=== PATIENT | female | born 1955 | race Caucasian/White ===

== ENCOUNTER 2016-06-07 09:16 | Emergency (ER) | payer MEDICARE, OTHER ==
[~2016-06-07] VITALS: Ht 170.2 cm; Wt 89.5 kg
[~2016-06-07 09:16] MED LIST: AMLO5TAB2 PO; ASPI1TAB69 PO; BUTA1CAP PO; GABA300C5 PO; LISI10TA3 PO; LORA-474 PO; METO50TA PO; PANT40TA3 PO; REME30TA PO; SERO200T PO; SERO25TA PO; ZOLO25TA PO
[2016-06-07 09:19] VITALS: BP 132/82; PULSE 80; RESP 16; TEMP 98.2; O2SAT 98
--- NOTE | 2016-06-07 09:43 | PD ---
HPI Chief Complaint: General Weakness Time Seen by Provider: 09:38 Travel History International Travel<30 days: No Contact w/Intl Traveler<30days: No Traveled to known affect area: No History of Present Illness HPI This is a 60-year-old female with history of tobaccoism, who presents with head neck and upper back pain. The patient states that 3 days ago, she tripped and fell while pushing a cart. She states she fell for hitting her head. She denies a loss of consciousness. The patient states that she was seen on Wednesday at [facility] and had a CAT scan that was told negative. She states that she still feels dizzy and lightheaded with some nausea. 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) GERD: No Genitourinary: No Hepatitis: Yes (HEP C TX IN 1988) Hiatal Hernia: No Hypertension: Yes Immune Disorder: No Implanted Vascular Access Dvce: Yes Musculoskeletal: Yes (HX OF SPINAL ABCESS) Neurologic: No Psychiatric: Yes Reproductive: No Respiratory: No Sickle Cell Disease: No Thyroid Disease: No Ulcer: No Menopausal: Yes Tubal Ligation: Yes (1990) Past Surgical History Abdominal Surgery: Yes ( LAP CHOLY AND LIVER BX) Body Medical Devices: HARDWARE IN LUMBAR SPINE Cholecystectomy: Yes Coronary Artery Bypass Graft: No Ear Surgery: No Endocrine Surgery: No Eye Surgery: No Genitourinary Surgery: No Gynecologic Surgery: Yes (TUBALIGATION ) Oral Surgery: No Other Surgery: Yes (spinal cage fusion l4 l5; tubal ligation; liver biopsy) Social History Alcohol Use: No (PT DENIES) Tobacco Use: Yes (1 PPD) Substance Use: No (PT DENIES) Allergies-Medications (Allergen,Severity, Reaction): Coded Allergies: Flexeril (Verified Allergy, Severe, Restlessness, 06/07/16) Reported Meds & Prescriptions Reported Meds & Active Scripts Active Lortab (Hydrocodone-Acetaminophen) 5-325 Mg Tab 1 Tab PO Q6H PRN Lisinopril 10 Mg Tab 10 Mg PO DAILY Fioricet (Qshaburpzs-Hnszqhogdkejd-Zdayqmze) 50-300-40 Mg Cap 1 Cap PO Q4H PRN Aspirin 81 Mg Tabdr 81 Mg PO DAILY Ativan (Lorazepam) 1 Mg Tab 1 Mg PO 2-3 DAILY PRN Zoloft (Sertraline HCl) 25 Mg Tab 25 Mg PO DAILY Seroquel (Quetiapine Fumarate) 25 Mg Tab 25 Mg PO BID Seroquel (Quetiapine Fumarate) 200 Mg Tab 200 Mg PO HS Remeron (Mirtazapine) 30 Mg Tab 30 Mg PO HS Review of Systems Except as stated in HPI: all other systems reviewed are Neg General / Constitutional: No: Fever, Chills Eyes: No: Diploplia, Blurred Vision HENT: Positive: Headaches, Lightheadedness, Neck Pain Cardiovascular: No: Chest Pain or Discomfort, Palpitations Respiratory: No: Cough, Shortness of Breath Gastrointestinal: Positive: Nausea, No: Vomiting, Abdominal Pain Musculoskeletal: Positive: Pain, No: Weakness (pain and upper thoracic spine) Neurologic: Positive: Dizziness, Headache, No: Weakness, Change in Mentation, Sensory Disturbance Physical Exam Narrative GENERAL: Well-nourished, well-developed patient. SKIN: Warm and dry. HEAD: Normocephalic last atraumatic. EYES: No scleral icterus. No injection or drainage. NECK: Supple, trachea midline. Subjective tenderness in her paraspinous muscles at C6 level. No posterior spinous process deformity or step-off. RESPIRATORY: Breath sounds equal bilaterally. No accessory muscle use. GASTROINTESTINAL: Abdomen soft, non-tender, nondistended. MUSCULOSKELETAL: No cyanosis, or edema. BACK: Paraspinous tenderness in the upper thoracic spine. No posterior spinous deformity or tenderness NEUROLOGICAL: Awake and alert. Cranial nerves II through XII intact. Motor grossly within normal limits. Five out of 5 muscle strength in all muscle groups. Normal speech. Data Data Last Documented VS Vital Signs Date Time Temp Pulse Resp B/P Pulse Ox O2 Delivery O2 Flow Rate FiO2 06/07/16 09:19 98.2 80 16 132/[address] Brain W/O Iv Contrast(Rout) (06/07/16 09:38) Ct Cerv Spine W/O Contrast (06/07/16 09:38) Spine, Thoracic-Ap/Lat/Sw(3vw) (06/07/16 09:38) Ketorolac Inj (Toradol Inj) (06/07/16 11:30) Admit Order (Ed Use Only) (06/07/16 11:57) MDM Medical Decision Making Medical Screen Exam Complete: Yes Emergency Medical Condition: Yes Differential Diagnosis Intracranial hemorrhage versus postconcussion syndrome versus vertigo Narrative Course 60-year-old female who was status post mechanical fall 3 days ago, presents today with complaints of continued discomfort in her head and mild dizziness. Patient also had pain in her cervical spine and thoracic spine. CT brain and cervical spine showed no evidence of acute injury. Thoracic spine plain films show no evidence of fracture dislocation. The patient's been given 30 mg of ketorolac times one dose. She'll be given a perception for Lortab 08/19/24. She is instructed that she likely has postconcussive syndrome. I told her that this can last up to 2 weeks. Diagnosis Primary Impression: Postconcussive syndrome Additional Impressions: Cervical strain Lumbar strain Scripts Hydrocodone-Acetaminophen (Lortab)5-325 Mg Tab1 Tab PO Q6H PRN (PAIN) #10 TAB Ref 0 Prov:Ike Costello MD 06/07/16 Ike Costello MD Jun 07, 2016 09:43
--- NOTE | 2016-06-07 10:02 | RADRPT ---
EXAM DATE/TIME: 06/07/2016 09:44 [facility] COMPARISON: No previous studies available for comparison. INDICATIONS : Upper back pain, fell MEDICAL HISTORY : Hypertension. SURGICAL HISTORY : None. ENCOUNTER: Initial ACUITY: 2 days PAIN SCORE: 6/10 LOCATION: Thoracic spine FINDINGS: There is normal alignment of the thoracic vertebral bodies. Vertebral body height is maintained. No evidence of fracture or subluxation. Pedicles are intact at all levels. The paravertebral reflecti ons are not thickened. CONCLUSION: No evidence of fracture. Salas Cardona MD on June 07, 2016 at 9:58 Board Certified Radiologist. This report was verified electronically.
--- NOTE | 2016-06-07 10:07 | RADRPT ---
EXAM DATE/TIME: 06/07/2016 09:52 [facility] COMPARISON: CT BRAIN W/O CONTRAST, October 24, 2014, 14:10. INDICATIONS : Fall, cephalgia. RADIATION DOSE: 30.90 CTDIvol (mGy) MEDICAL HISTORY : Hypertension. SURGICAL HISTORY : None. ENCOUNTER: Initial ACUITY: 1 day PAIN SCALE: 5/10 LOCATION: cranial TECHNIQUE: Multiple contiguous axial images were obtained of the head. Using automated exposure control and adj ustment of the mA and/or kV according to patient size, radiation dose was kept as low as reasonably a chievable to obtain optimal diagnostic quality images. FINDINGS: CEREBRUM: The ventricles are normal for age. No evidence of midline shift, mass lesion, hemorrhage or acute in farction. No extra-axial fluid collections are seen. POSTERIOR FOSSA: The cerebellum and brainstem are intact. The 4th ventricle is midline. The cerebellopontine angle i s unremarkable. EXTRACRANIAL: The visualized portion of the orbits is intact. SKULL: The calvaria is intact. No evidence of skull fracture. CONCLUSION: No acute intracranial findings. Salas Cardona MD on June 07, 2016 at 10:03 Board Certified Radiologist. This report was verified electronically.
--- NOTE | 2016-06-07 10:18 | RADRPT ---
EXAM DATE/TIME: 06/07/2016 09:52 [facility] COMPARISON: CT CERVICAL SPINE W/O CONTRAST, October 24, 2014, 14:10. INDICATIONS : Fall, neck pain. RADIATION DOSE: 19.01 CTDIvol (mGy) MEDICAL HISTORY : Hypertension. SURGICAL HISTORY : None. ENCOUNTER: Initial ACUITY: 1 day PAIN SCALE: 3/10 LOCATION: neck TECHNIQUE: Volumetric scanning of the cervical spine was performed. Multiplanar reconstructions in the sagittal, coronal and oblique axial planes were performed. Using automated exposure control and adjustment o f the mA and/or kV according to patient size, radiation dose was kept as low as reasonably achievable to obtain optimal diagnostic quality images. FINDINGS: VERTEBRAE: 4 mm round lucency in the C3 vertebral body unchanged. No evidence of fracture. ALIGNMENT: Within normal limits. C2-C3: The bony spinal canal is normal in size. No evidence of disc bulge or herniation. The neural forami na are bilaterally patent. C3-C4: The bony spinal canal is normal in size. No evidence of disc bulge or herniation. The neural forami na are bilaterally patent. C4-C5: Small central disc protrusion unchanged. Central canal diameter within normal limits. Neural foramina l diameter within normal limits. Mild bilateral facet arthrosis. C5-C6: Mild right-sided facet arthrosis. No evidence of focal disc protrusion. Central canal normal diameter . Neural foraminal diameters within normal limits. C6-C7: The bony spinal canal is normal in size. No evidence of disc bulge or herniation. The neural forami na are bilaterally patent. C7-T1: The bony spinal canal is normal in size. No evidence of disc bulge or herniation. The neural forami na are bilaterally patent. CONCLUSION: No evidence of fracture. Mild degenerative findings unchanged. Salas Cardona MD on June 07, 2016 at 10:10 Board Certified Radiologist. This report was verified electronically.
[2016-06-07] MEDS ORDERED: KETOROLAC TROMETHAMINE 30 MG/ML (IVP) VIAL IV PUSH ONE (11:30)
[2016-06-07] MEDS ORDERED: HYDR-3533 PO (12:05)
[2016-06-07] MEDS ORDERED: ACETAMINOPHEN/HYDROcodone 325 MG/7.5 MG TAB PO ONE (12:45)
[2016-06-07 13:01] VITALS: BP 138/74
[2016-08-04] MEDS ORDERED: BUTA1CAP PO (09:02)
[2016-08-10] MEDS ORDERED: KETO60IN6 IM (09:17)
== END 2016-06-07 13:03 | disposition home or self-care (01) ==
LOC: NEPE 09:16 → UNDOADMIN 12:00 → NEDH 12:00 → NEPE 13:03
DX: F07.81 Postconcussional syndrome (principal); S16.1XXA Strain of muscle, fascia and tendon at neck level, initial encounter; W18.09XA Striking against other object with subsequent fall, initial encounter; F17.210 Nicotine dependence, cigarettes, uncomplicated; Y93.89 Activity, other specified
CPT/HCPCS: 70450; 72072; 72125; 96374; 99284; J1885

== ENCOUNTER 2016-08-08 00:04 | Emergency (ER) | payer MEDICARE, OTHER ==
[~2016-08-08] VITALS: Ht 170.2 cm; Wt 85.5 kg
[~2016-08-08 00:04] MED LIST changes: -AMLO5TAB2 PO; -GABA300C5 PO; -METO50TA PO; -PANT40TA3 PO
[2016-08-08 00:10] VITALS: BP 114/62; PULSE 79; RESP 14; TEMP 97.8; O2SAT 99
[2016-08-08] MEDS ORDERED: SODIUM CHLOR 0.9% 1000 ML INJ 1,000 ML IV SCH (00:41)
[2016-08-08] MEDS ORDERED: SODIUM CHLORIDE 0.9% FLUSH 10 ML FLUSH IV FLUSH PRN (00:45)
[2016-08-08] MEDS ORDERED: ONDANSETRON HCL 4 MG/2 ML VIAL IVP ONE (00:45)
[2016-08-08] MEDS ORDERED: HYDROmorphone HCL PF 1 MG/ML VIAL IV PUSH ONE (00:45)
[2016-08-08 01:00] LABS: AUTOMATED NEUTROPHIL # 3.7 TH/MM3 (1.8-7.7); BASOPHIL % 0.3 % (0.0-2.0); EOSINOPHIL # 0.4 TH/MM3 (0-0.4); EOSINOPHIL % 4.2 % (0.0-4.0); HEMATOCRIT 34.3 % (35.0-46.0); HEMO FLAGS DIFF FINAL; LYMPH % 43.9 % (9.0-44.0); LYMPHOCYTE # 3.7 TH/MM3 (1.0-4.8); MEAN CELL VOLUME 87.4 FL (80.0-100.0); MEAN CORPUSCULAR HEMOGLOBIN 30.6 PG (27.0-34.0); MONO % 7.7 % (0.0-8.0); NEUT % 43.9 % (16.0-70.0); PLATELET COUNT 218 TH/MM3 (150-450); RED BLOOD COUNT 3.92 MIL/MM3 (4.00-5.30); RED CELL DISTRIBUTION WIDTH 15.7 % (11.6-17.2); WHITE BLOOD COUNT 8.4 TH/MM3 (4.0-11.0)
[2016-08-08 01:26] LABS: ALKALINE PHOSPHATASE 108 U/L (45-117); TOTAL BILIRUBIN ADULT 0.1 MG/DL (0.2-1.0)
[2016-08-08 01:28] LABS: ALT (GPT) 29 U/L (10-53); ANION GAP 9 MEQ/L (5-15); AST (GOT) 30 U/L (15-37); BICARBONATE 24.1 MEQ/L (21.0-32.0); BLOOD UREA NITROGEN 17 MG/DL (7-18); CHLORIDE 108 MEQ/L (98-107); GLOMERULAR FILTRATION RATE 48 ML/MIN (>89); POTASSIUM 3.8 MEQ/L (3.5-5.1); SODIUM (NA) 141 MEQ/L (136-145)
[2016-08-08 01:49] LABS: BACTERIA, URINE RARE /hpf; BLOOD, URINE NEG (NEG); GLUCOSE,URINE NEG (NEG); KETONE, URINE NEG (NEG); NITRITE,URINE NEG (NEG); PH, URINE 5.5 (5.0-8.5); SQUAMOUS EPITHELIAL CELL URINE <1 /hpf (0-5); URINE COLOR LIGHT-YELLOW (YELLW/STRAW)
[2016-08-08 01:50] LABS: COMMENT (UR) CULT NOT INDICATED; CULTURE IF INDICATED CULT NOT INDICATED
--- NOTE | 2016-08-08 01:51 | RADRPT ---
EXAM DATE/TIME: 08/08/2016 01:24 [facility] COMPARISON: No previous studies available for comparison. INDICATIONS : Abdominal pain. ORAL CONTRAST: No oral contrast ingested. RADIATION DOSE: 14.62 CTDIvol (mGy) MEDICAL HISTORY : Hepatitis C. SURGICAL HISTORY : Fusion, lumbar. Tubal ligation. ENCOUNTER: Initial ACUITY: 1 day PAIN SCALE: 8/10 LOCATION: abdomen TECHNIQUE: Volumetric scanning of the abdomen and pelvis was performed. Using automated exposure control and ad justment of the mA and/or kV according to patient size, radiation dose was kept as low as reasonably achievable to obtain optimal diagnostic quality images. FINDINGS: LOWER LUNGS: The visualized lower lungs are clear. Small hiatal hernia. LIVER: Homogeneous density without lesion. There is no dilation of the biliary tree. Prior cholecystectomy. SPLEEN: Normal size without lesion. PANCREAS: Within normal limits. KIDNEYS: Normal in size and shape. There is no mass, stone, or hydronephrosis. ADRENAL GLANDS: Within normal limits. VASCULAR: There is no aortic aneurysm. BOWEL/MESENTERY: The stomach, small bowel, and colon demonstrate no acute abnormality. There is no free intraperitone al air or fluid. ABDOMINAL WALL: Within normal limits. RETROPERITONEUM: There is no lymphadenopathy. BLADDER: No wall thickening or mass. REPRODUCTIVE: Within normal limits. INGUINAL: There is no lymphadenopathy or hernia. MUSCULOSKELETAL: Within normal limits for patient age. L5-S1 fusion. CONCLUSION: 1. No acute abnormality. 2. Prior cholecystectomy. Hi Kinsey Jr., MD on August 08, 2016 at 1:46 Board Certified Radiologist. This report was verified electronically.
--- NOTE | 2016-08-08 01:58 | PD ---
HPI Chief Complaint: Abdominal Pain Time Seen by Provider: 00:24 Travel History International Travel<30 days: No Contact w/Intl Traveler<30days: No Traveled to known affect area: No History of Present Illness HPI 61-year-old female arrives to the ER complaining of right upper quadrant pain for about 12 hours or so. It radiates to the right back. It started about 12 hours prior to ER arrival. She's had no bloody urine. She's had no nausea vomiting diarrhea or fever. Onset was gradual. Appetite has been decreased. 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) GERD: No Genitourinary: No Hepatitis: Yes (HEP C TX IN 1988) Hiatal Hernia: No Heparin Induced Thrombocytopen: No Hypertension: Yes Immune Disorder: No Implanted Vascular Access Dvce: Yes Musculoskeletal: Yes (HX OF SPINAL ABCESS) Neurologic: No Psychiatric: Yes Reproductive: No Respiratory: No Sickle Cell Disease: No Thyroid Disease: No Ulcer: No Menopausal: Yes Tubal Ligation: Yes (1990) Past Surgical History Abdominal Surgery: Yes ( LAP CHOLY AND LIVER BX) Body Medical Devices: HARDWARE IN LUMBAR SPINE Cholecystectomy: Yes Coronary Artery Bypass Graft: No Ear Surgery: No Endocrine Surgery: No Eye Surgery: No Genitourinary Surgery: No Gynecologic Surgery: Yes (TUBALIGATION ) Oral Surgery: No Other Surgery: Yes (spinal cage fusion l4 l5; tubal ligation; liver biopsy) Social History Alcohol Use: No (PT DENIES) Tobacco Use: Yes Substance Use: No Allergies-Medications (Allergen,Severity, Reaction): Coded Allergies: Flexeril (Verified Allergy, Severe, Restlessness, 08/08/16) Reported Meds & Prescriptions Reported Meds & Active Scripts Active Fioricet (Bemlweqryh-Ffzqqujnogoyy-Iqzfgwmr) 50-300-40 Mg Cap 1 Cap PO Q4H PRN Lisinopril 10 Mg Tab 10 Mg PO DAILY Aspirin 81 Mg Tabdr 81 Mg PO DAILY Ativan (Lorazepam) 1 Mg Tab 1 Mg PO 2-3 DAILY PRN Zoloft (Sertraline HCl) 25 Mg Tab 25 Mg PO DAILY Seroquel (Quetiapine Fumarate) 25 Mg Tab 25 Mg PO BID Seroquel (Quetiapine Fumarate) 200 Mg Tab 200 Mg PO HS Remeron (Mirtazapine) 30 Mg Tab 30 Mg PO HS Review of Systems Except as stated in HPI: all other systems reviewed are Neg General / Constitutional: No: Fever Gastrointestinal: Positive: Abdominal Pain Physical Exam Narrative GENERAL: 61-year-old female well-nourished well-developed SKIN: Focused skin assessment warm/dry. HEAD: Atraumatic. Normocephalic. EYES: Pupils equal and round. No scleral icterus. No injection or drainage. ENT: No nasal bleeding or discharge. Mucous membranes pink and moist. NECK: Trachea midline. No JVD. CARDIOVASCULAR: Regular rate and rhythm. No murmur appreciated. RESPIRATORY: No accessory muscle use. Clear to auscultation. Breath sounds equal bilaterally. GASTROINTESTINAL: Tenderness to palpation right upper quadrant/positive De Jesus sign. Soft. MUSCULOSKELETAL: No obvious deformities. No clubbing. No cyanosis. No edema. NEUROLOGICAL: Awake and alert. No obvious cranial nerve deficits. Motor grossly within normal limits. Normal speech. PSYCHIATRIC: Appropriate mood and affect; insight and judgment normal. Data Data Last Documented VS Vital Signs Date Time Temp Pulse Resp B/P Pulse Ox O2 Delivery O2 Flow Rate FiO2 08/08/16 00:10 97.8 79 14 114/62 99 Vital signs reviewed Orders Complete Blood Count With Diff (08/08/16 00:41) Comprehensive Metabolic Panel (08/08/16 00:41) Lipase (08/08/16 00:41) Lactic Acid (08/08/16 00:41) Urinalysis - C+S If Indicated (08/08/16 00:41) Ct Abd/Pel W/O Iv Contrast (08/08/16 00:41) Iv Access Insert/Monitor (08/08/16 00:41) Ecg Monitoring (08/08/16 00:41) Oximetry (08/08/16 00:41) Ondansetron Inj (Zofran Inj) (08/08/16 00:45) Sodium Chlor 0.9% 1000 Ml Inj (Ns 1000 M (08/08/16 00:41) Sodium Chloride 0.9% Flush (Ns Flush) (08/08/16 00:45) Hydromorphone Pf Inj (Dilaudid Pf Inj) (08/08/16 00:45) Labs Laboratory Tests Test 08/08/16 00:50 White Blood Count 8.4 TH/MM3 Red Blood Count 3.92 MIL/MM3 Hemoglobin 12.0 GM/DL Hematocrit 34.3 % Mean Corpuscular Volume 87.4 FL Mean Corpuscular Hemoglobin 30.6 PG Mean Corpuscular Hemoglobin 35.0 % Concent Red Cell Distribution Width 15.7 % Platelet Count 218 TH/MM3 Mean Platelet Volume 8.8 FL Neutrophils (%) (Auto) 43.9 % Lymphocytes (%) (Auto) 43.9 % Monocytes (%) (Auto) 7.7 % Eosinophils (%) (Auto) 4.2 % Basophils (%) (Auto) 0.3 % Neutrophils # (Auto) 3.7 TH/MM3 Lymphocytes # (Auto) 3.7 TH/MM3 Monocytes # (Auto) 0.6 TH/MM3 Eosinophils # (Auto) 0.4 TH/MM3 Basophils # (Auto) 0.0 TH/MM3 CBC Comment DIFF FINAL Differential Comment Sodium Level 141 MEQ/L Potassium Level 3.8 MEQ/L Chloride Level 108 MEQ/L Carbon Dioxide Level 24.1 MEQ/L Anion Gap 9 MEQ/L Blood Urea Nitrogen 17 MG/DL Creatinine 1.15 MG/DL Estimat Glomerular Filtration 48 ML/MIN Rate Random Glucose 101 MG/DL Lactic Acid Level LESS THAN 0.1 mmol/L Calcium Level 8.9 MG/DL Total Bilirubin 0.1 MG/DL Aspartate Amino Transf 30 U/L (AST/SGOT) Alanine Aminotransferase 29 U/L (ALT/SGPT) Alkaline Phosphatase 108 U/L Total Protein 8.0 GM/DL Albumin 4.1 GM/DL Lipase 153 U/L [facility] Medical Decision Making Medical Screen Exam Complete: Yes Emergency Medical Condition: Yes Medical Record Reviewed: Yes Differential Diagnosis Constipation, Gastritis, Acute Cholecystitis, Biliary Colic, Pancreatitis, RAMOS , Hepatitis, Bowel Obstruction, Cystitis, Mesenteric Ischemia, AAA, Appendicitis , Renal Stone/Hydronephrosis, GERD, perforated viscous Narrative Course CBC & BMP Diagram 08/08/16 00:50 LA < 0.01 LFTs normal Lipase 153 CT ab/pel: No acute disease The patient is resting comfortably and feels better, is alert and in no distress. The patients results and examination findings were discussed. The repeat examination is unremarkable and benign. The history, exam, diagnostic testing, and current condition do not suggest any significant pathology to warrant further testing, continued ED treatment, admission, or surgical evaluation at this point. The vital signs have been stable. The patient does not have uncontrollable pain, intractable vomiting, or other significant symptoms. The patient's condition is stable and appropriate for discharge. The patient will pursue further outpatient evaluation with a primary care physician or other designated or consulting physician as indicated in the discharge instructions. The patient expressed understanding and was agreeable with this plan. Diagnosis Primary Impression: Abdominal pain Qualified Code: R10.11 - Right upper quadrant abdominal pain Admitting Information Admitting Physician Requests: Admit Referrals: Primary Care Physician 2 days Additional Instructions: You have a choice when it comes to health care, and we are glad that you chose [facility]. Hopefully, we have met your expectations on today's visit. You are welcome to return to [facility] at any time, as we are committed to meeting the health care needs of our community. Med/Other Pt SpecificInfo: No Change to Meds Disposition: 01 DISCHARGE HOME Condition: Stable Mitch Hughes MD Aug 08, 2016 01:58
[2016-08-10] MEDS ORDERED: KETO60IN6 IM (09:17)
== END 2016-08-08 02:20 | disposition home or self-care (01) ==
LOC: NEPE 00:04
DX: R10.11 Right upper quadrant pain (principal); Z72.0 Tobacco use; F41.8 Other specified anxiety disorders; I10 Essential (primary) hypertension; R10.31 Right lower quadrant pain
CPT/HCPCS: 72158; 74176; 80053; 81001; 83605; 83690; 85025; 87210; 87491; 87591; 96374; 96375; 99284; A9579; J1170; J2405; J7030

== ENCOUNTER 2016-08-08 11:10 | Emergency (ER) | payer MEDICARE ==
[~2016-08-08] VITALS: Ht 170.2 cm; Wt 85.5 kg
[2016-08-08 11:12] VITALS: BP 131/68; PULSE 76; RESP 20; TEMP 98.5; O2SAT 97
--- NOTE | 2016-08-08 11:49 | PD ---
HPI Chief Complaint: Flank/Kidney Pain Time Seen by Provider: 11:29 Travel History International Travel<30 days: No Contact w/Intl Traveler<30days: No Traveled to known affect area: No History of Present Illness HPI Patient's 61-year-old female with a second presentation in 24 hours for complaints of abdominal discomfort. Patient states she's having some right lower quadrant and right low back pain. Patient states it feels similar to when she was diagnosed with spinal abscesses which were postoperative in the past. She states this was in [place]. She denies any fever denies any IV drug use. Patient was seen and evaluated early this morning by Dr. Hughes. Patient had full workup including CBC CMP lipase and CAT scan. No etiology to the pain were identified. 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) GERD: No Genitourinary: No Hepatitis: Yes (HEP C TX IN 1988) Hiatal Hernia: No Heparin Induced Thrombocytopen: No Hypertension: Yes Immune Disorder: No Implanted Vascular Access Dvce: Yes Musculoskeletal: Yes (HX OF SPINAL ABCESS) Neurologic: No Psychiatric: Yes Reproductive: No Respiratory: No Sickle Cell Disease: No Thyroid Disease: No Ulcer: No Menopausal: Yes Tubal Ligation: Yes (1990) Past Surgical History Abdominal Surgery: Yes ( LAP CHOLY AND LIVER BX) Body Medical Devices: HARDWARE IN LUMBAR SPINE Cholecystectomy: Yes Coronary Artery Bypass Graft: No Ear Surgery: No Endocrine Surgery: No Eye Surgery: No Genitourinary Surgery: No Gynecologic Surgery: Yes (TUBALIGATION ') Oral Surgery: No Other Surgery: Yes (spinal cage fusion l4 l5; tubal ligation; liver biopsy) Social History Alcohol Use: No (PT DENIES) Tobacco Use: Yes Substance Use: No Allergies-Medications (Allergen,Severity, Reaction): Coded Allergies: Flexeril (Verified Allergy, Severe, Restlessness, 08/08/16) Reported Meds & Prescriptions Reported Meds & Active Scripts Active Fioricet (Kkmnauhcdu-Gpdfzploljmex-Ejonsryq) 50-300-40 Mg Cap 1 Cap PO Q4H PRN Lisinopril 10 Mg Tab 10 Mg PO DAILY Aspirin 81 Mg Tabdr 81 Mg PO DAILY Ativan (Lorazepam) 1 Mg Tab 1 Mg PO 2-3 DAILY PRN Zoloft (Sertraline HCl) 25 Mg Tab 25 Mg PO DAILY Seroquel (Quetiapine Fumarate) 25 Mg Tab 25 Mg PO BID Seroquel (Quetiapine Fumarate) 200 Mg Tab 200 Mg PO HS Remeron (Mirtazapine) 30 Mg Tab 30 Mg PO HS Review of Systems Except as stated in HPI: all other systems reviewed are Neg Physical Exam Narrative GENERAL: Well-developed well-nourished, ambulated to the exam room in no apparent distress. SKIN: Warm and dry. HEAD: Atraumatic. Normocephalic. EYES: Pupils equal and round. No scleral icterus. No injection or drainage. ENT: No nasal bleeding or discharge. Mucous membranes pink and moist. NECK: Trachea midline. No JVD. CARDIOVASCULAR: Regular rate and rhythm. RESPIRATORY: No accessory muscle use. Clear to auscultation. Breath sounds equal bilaterally. GASTROINTESTINAL: Abdomen soft, non-tender, nondistended. Hepatic and splenic margins not palpable. No rebound no percussive tenderness. No guarding. No CVA tenderness. There is some soft tissue tenderness to the right flank consistent with musculoskeletal pain. No CVA tenderness. MUSCULOSKELETAL: Extremities without clubbing, cyanosis, or edema. No obvious deformities. NEUROLOGICAL: Awake and alert. No obvious cranial nerve deficits. Motor grossly within normal limits. Five out of 5 muscle strength in the arms and legs. Normal speech. PSYCHIATRIC: Appropriate mood and affect; insight and judgment normal. Data Data Last Documented VS Vital Signs Date Time Temp Pulse Resp B/P Pulse Ox O2 Delivery O2 Flow Rate FiO2 08/08/16 15:05 18 08/08/16 11:12 98.5 76 131/68 97 Room Air Orders Mri L Spine W&W/O Contrast (08/08/16 ) Ibuprofen (Motrin) (08/08/16 12:15) Gadodiamide Pf Inj (Omniscan Pf Inj) (08/08/16 13:19) Ketorolac Inj (Toradol Inj) (08/08/16 13:30) Acetamin-Hydrocod 325-5 Mg ([place] 5-325 (08/08/16 13:45) Wet Prep Profile (08/08/16 14:24) Gc And Chlamydia Pcr (08/08/16 14:24) Oxycodone (Roxicodone) (08/08/16 14:30) Labs Laboratory Tests Test 08/08/16 14:50 Clue Cells (Wet Prep) NONE SEEN Vaginal Trichomonas (Wet Prep) NONE SEEN Vaginal Yeast (Wet Prep) NONE SEEN MDM Medical Decision Making Medical Screen Exam Complete: Yes Emergency Medical Condition: Yes Differential Diagnosis Musculoskeletal pain, abdominal pain, flank pain, pelvic pain, acute on chronic pain. Narrative Course Patient 61-year-old female presents with right lower quadrant and right flank pain. Patient had a complete abdominal workup yesterday including CBC CMP and a CAT scan of her abdomen showed unremarkable. Her complaint to me today is that it feels like when her abscesses came in her back in her low back. She states this was a complication from surgery in the past. She has not had any fevers. An MRI was obtained which shows no infectious etiology of her low back. Patient is called on the [facility] multiple times for additional pain medicine. She was initially given ibuprofen and states that that she knew that wouldn't work for her but took it anyways. She was then ordered hydrocodone and stated that that wouldn't work for her but took it anyways. Patient states she's been on hydrocodone for many years and knows this will work for her and the only thing that'll work for her is Dilaudid. Patient's [facility] was obtained that shows that she had 120 pills of [place] [address] Lux on 06/29/2016 she had additional 120 tablets filled from the same physician on 05/28/2016. She has some scattered scripts for 120 mg of lorazepam in this time. As well as once a small prescription for Kent in May from this facility. Patient is not tachycardic is not peritoneal does not have any life-threatening causes for abdominal pain. In my professional medical opinion she does not meet criteria for IV narcotics at this time. Labs were obtained less than 12 hours prior to her arrival today. I do not see the reason to repeat these. Her CAT scan was obtained less than 12 hours prior to arrival and I do not see a reason to repeat this and probably the risks the patient outweigh the benefits of repeating a CAT scan. Pelvic exam was obtained and does not show any abnormality. No etiology to her pain has not been established could consider acute on chronic pain. She is stable to follow up with her primary care physician for further workup. Diagnosis Primary Impression: Right lower quadrant pain Disposition: 01 DISCHARGE HOME Condition: Stable Camron Chris MD Aug 08, 2016 11:49
[2016-08-08] MEDS ORDERED: IBUPROFEN 600 MG TAB PO ONE (12:15)
[2016-08-08] MEDS ORDERED: GADODIAMIDE PF 287 MG/ML 20 ML VIAL (for RAD MRI) IV ONE (13:19)
[2016-08-08] MEDS ORDERED: KETOROLAC TROMETHAMINE 60 MG/2 ML (IM) VIAL IM ONE (13:30)
[2016-08-08] MEDS ORDERED: ACETAMINOPHEN/HYDROcodone 325 MG/5 MG TAB PO ONE (13:45)
--- NOTE | 2016-08-08 14:31 | RADRPT ---
EXAM DATE/TIME: 08/08/2016 12:55 [facility] COMPARISON: CT ABDOMEN & PELVIS W/O CONTRAST, August 08, 2016, 1:24. MRI LUMBAR SPINE W & W/O CONTRAST, June 07, 2015, 12:56. INDICATIONS : Right side and groin pain. CONTRAST: 17 cc Omniscan (gadodiamide) IV MEDICAL HISTORY : Hypertension. SURGICAL HISTORY : Fusion, lumbar. ENCOUNTER: Initial ACUITY: 1 week PAIN SCORE: 4/10 LOCATION: [facility] TECHNIQUE: Multiplanar multisequence MRI of the lumbar spine was performed with and without contr ast. FINDINGS: The lumbar vertebral bodies are normally aligned. The patient is status post stabilization procedure at the L5-S1 level. Two stabilization cages are seen at this level. The cord appears normal. T12-L1: The thecal sac has a normal diameter. No evidence of disc bulge or protrusion. The neural foramina are patent bilaterally. L1-L2: The thecal sac has a normal diameter. No evidence of disc bulge or protrusion. The neural f oramina are patent bilaterally. L2-L3: The disc demonstrates mild decreased signal. A significant impression on the thecal sac is n ot seen. The neural foramina are normal. L3-L4: The thecal sac has a normal diameter. No evidence of disc bulge or protrusion. The neural f oramina are patent bilaterally. There is mild facet hypertrophy. L4-L5: The thecal sac has a normal diameter. No evidence of disc bulge or protrusion. The neural f oramina are patent bilaterally. There is moderate facet hypertrophy. L5-S1: Two stabilization cages are seen at the L5-S1 disc level. There is postoperative change at t he posterior elements. A significant area of spinal stenosis is not appreciated. Significant epidur al enhancement is not clearly seen. There does appear to be possible fusion at the facet joints. CONCLUSION: 1. Postoperative change at the L5-S1 level as described above. 2. Mild changes at the L2-L3 through L4-L5 levels as described above. Jorden Vogel MD on August 08, 2016 at 14:15 Board Certified Radiologist. This report was verified electronically.
[2016-08-08 15:05] VITALS: RESP 18
[2016-08-08 21:59] LABS: CHLAMYDIA PCR NOT DETECTED (NOT DETECT); NEISSERIA PCR NOT DETECTED (NOT DETECT)
[2016-08-10] MEDS ORDERED: KETO60IN6 IM (09:17)
== END 2016-08-08 16:03 | disposition home or self-care (01) ==
LOC: NEPD 11:10
DX: R10.31 Right lower quadrant pain (principal); I10 Essential (primary) hypertension; F41.8 Other specified anxiety disorders
CPT/HCPCS: 72158; 87210; 87491; 87591; 99284; A9579

== ENCOUNTER → 2016-08-10 | Outpatient (CLI) | payer MEDICARE ==
[~2016-08-10] MED LIST changes: +KETO60IN6 IM
[2016-08-10 10:12] LABS: AUTOMATED NEUTROPHIL # 4.2 TH/MM3 (1.8-7.7); BASOPHIL # 0.1 TH/MM3 (0-0.2); BASOPHIL % 0.8 % (0.0-2.0); EOSINOPHIL # 0.4 TH/MM3 (0-0.4); HEMATOCRIT 34.7 % (35.0-46.0); HEMO FLAGS DIFF FINAL; LYMPH % 33.2 % (9.0-44.0); LYMPHOCYTE # 2.6 TH/MM3 (1.0-4.8); MEAN CELL VOLUME 88.1 FL (80.0-100.0); MEAN CORPUSCULAR HEMOGLOBIN 30.2 PG (27.0-34.0); MEAN CORPUSCULAR HGB CONC 34.2 % (32.0-36.0); MONO % 7.3 % (0.0-8.0); NEUT % 53.7 % (16.0-70.0); PLATELET COUNT 207 TH/MM3 (150-450); RED BLOOD COUNT 3.94 MIL/MM3 (4.00-5.30); RED CELL DISTRIBUTION WIDTH 16.3 % (11.6-17.2); WHITE BLOOD COUNT 7.8 TH/MM3 (4.0-11.0)
[2016-08-10 10:40] LABS: BICARBONATE 26.1 MEQ/L (21.0-32.0); POTASSIUM 4.5 MEQ/L (3.5-5.1)
== END ==
LOC: CLAB 09:52
PROVIDERS: ATTEND Internal Medicine Hematology & Oncology
DX: R10.9 Unspecified abdominal pain (principal)
CPT/HCPCS: 36415; 80048; 85025

== ENCOUNTER 2016-10-21 15:29 | Emergency (ER) | payer MEDICARE, OTHER ==
[~2016-10-21] VITALS: Ht 170.2 cm; Wt 82.0 kg
[~2016-10-21 15:29] MED LIST changes: -KETO60IN6 IM
[2016-10-21 16:04] VITALS: BP 95/54; PULSE 78; RESP 18; TEMP 98.1; O2SAT 95
[2016-10-21 16:33] LABS: AUTOMATED NEUTROPHIL # 4.2 TH/MM3 (1.8-7.7); BASOPHIL # 0.1 TH/MM3 (0-0.2); BASOPHIL % 0.7 % (0.0-2.0); EOSINOPHIL # 0.4 TH/MM3 (0-0.4); HEMATOCRIT 33.3 % (35.0-46.0); HEMO FLAGS DIFF FINAL; LYMPH % 37.2 % (9.0-44.0); LYMPHOCYTE # 3.3 TH/MM3 (1.0-4.8); MEAN CELL VOLUME 89.5 FL (80.0-100.0); MEAN CORPUSCULAR HEMOGLOBIN 29.7 PG (27.0-34.0); MEAN CORPUSCULAR HGB CONC 33.2 % (32.0-36.0); MONO % 8.8 % (0.0-8.0); NEUT % 48.3 % (16.0-70.0); PLATELET COUNT 196 TH/MM3 (150-450); RED BLOOD COUNT 3.72 MIL/MM3 (4.00-5.30); RED CELL DISTRIBUTION WIDTH 15.2 % (11.6-17.2); WHITE BLOOD COUNT 8.8 TH/MM3 (4.0-11.0)
[2016-10-21 16:56] LABS: CREATINE KINASE 180 U/L (26-192)
--- NOTE | 2016-10-21 17:07 | PD ---
HPI Chief Complaint: Chest Pain Time Seen by Provider: 17:03 Travel History International Travel<30 days: No Contact w/Intl Traveler<30days: No Traveled to known affect area: No History of Present Illness HPI Patient is a 61-year-old female presenting to emergency for evaluation of chest pain. Patient states it started at 1:30 this afternoon, substernal, tight with radiation into her jaw and ears. She reports a frontal headache which is dull. She denies any shortness of breath, abdominal pain, nausea, vomiting, cough. She states that she's had a few episodes of epistaxis over the last few days. Patient also reports that she's had decreased appetite. She has a history of a negative heart catheter 4 years ago. She is a current smoker, she is on lisinopril for hypertension. PFSH Past Medical History Arthritis: Yes Autoimmune Disease: No Anxiety: Yes Depression: Yes Cancer: No Cardiac Catheterization: Yes (4 years ago, negative) High Cholesterol: No Chest Pain: No Congestive Heart Failure: No Diabetes: No Diminished Hearing: No Endocrine: No GERD: No Genitourinary: No Hepatitis: Yes (HEP C TX IN 1988) Hiatal Hernia: No Heparin Induced Thrombocytopen: No Hypertension: Yes Immune Disorder: No Implanted Vascular Access Dvce: Yes Musculoskeletal: Yes (HX OF SPINAL ABCESS) Neurologic: No Psychiatric: Yes Reproductive: No Respiratory: No Sickle Cell Disease: No Thyroid Disease: No Ulcer: No Menopausal: Yes Tubal Ligation: Yes (1990) Past Surgical History Body Medical Devices: HARDWARE IN LUMBAR SPINE Cholecystectomy: Yes Coronary Artery Bypass Graft: No Ear Surgery: No Endocrine Surgery: No Eye Surgery: No Genitourinary Surgery: No Gynecologic Surgery: Yes (BTL ) Oral Surgery: No Other Surgery: Yes (spinal cage fusion l4 l5; tubal ligation; liver biopsy) Social History Alcohol Use: No (PT DENIES) Tobacco Use: Yes Substance Use: No Allergies-Medications (Allergen,Severity, Reaction): Coded Allergies: Flexeril (Verified Allergy, Severe, Restlessness, 10/21/16) Reported Meds & Prescriptions Reported Meds & Active Scripts Active Fioricet (Hewlqxzyhg-Ubxmqqhmdktjh-Cqucmgvr) 50-300-40 Mg Cap 1 Cap PO Q4H PRN Lisinopril 10 Mg Tab 10 Mg PO DAILY Aspirin 81 Mg Tabdr 81 Mg PO DAILY Ativan (Lorazepam) 1 Mg Tab 1 Mg PO 2-3 DAILY PRN Zoloft (Sertraline HCl) 25 Mg Tab 25 Mg PO DAILY Seroquel (Quetiapine Fumarate) 25 Mg Tab 25 Mg PO BID Seroquel (Quetiapine Fumarate) 200 Mg Tab 200 Mg PO HS Review of Systems Except as stated in HPI: all other systems reviewed are Neg General / Constitutional: No: Fever Eyes: No: Blurred Vision HENT: Positive: Headaches Cardiovascular: Positive: Chest Pain or Discomfort, No: Tachycardia, Diaphoresis, Syncope, Edema Respiratory: No: Shortness of Breath Gastrointestinal: Positive: Loss of Appetite, No: Nausea, Vomiting, Abdominal Pain Musculoskeletal: No: Myalgias Neurologic: No: Weakness, Dizziness, Syncope Physical Exam Narrative GENERAL: Well-developed, well-nourished, alert female. Resting comfortably in no acute distress. SKIN: Warm and dry. HEAD: Atraumatic. Normocephalic. EYES: Pupils equal and round. No scleral icterus. No injection or drainage. ENT: No nasal bleeding or discharge. Mucous membranes pink and moist. NECK: Trachea midline. No JVD. CARDIOVASCULAR: Regular rate and rhythm. RESPIRATORY: No accessory muscle use. Clear to auscultation. Breath sounds equal bilaterally. GASTROINTESTINAL: Abdomen soft, non-tender, nondistended. Hepatic and splenic margins not palpable. MUSCULOSKELETAL: Extremities without clubbing, cyanosis, or edema. No obvious deformities. NEUROLOGICAL: Awake and alert. No obvious cranial nerve deficits. Motor grossly within normal limits. Five out of 5 muscle strength in the arms and legs. Normal speech. PSYCHIATRIC: Appropriate mood and affect; insight and judgment normal. Data Data Last Documented VS Vital Signs Date Time Temp Pulse Resp B/P Pulse Ox O2 Delivery O2 Flow Rate FiO2 10/21/16 17:40 99 Room Air 10/21/16 17:35 80 20 118/67 10/21/16 16:04 98.1 Orders Electrocardiogram (10/21/16 16:06) Complete Blood Count With Diff (10/21/16 16:06) Ckmb (Isoenzyme) Profile (10/21/16 16:06) Troponin I (10/21/16 16:06) Chest, Single Ap (10/21/16 16:06) Iv Access Insert/Monitor (10/21/16 16:06) Ecg Monitoring (10/21/16 16:06) Oxygen Administration (10/21/16 16:06) Oximetry (10/21/16 16:06) Comprehensive Metabolic Panel (10/21/16 16:07) Lipase (10/21/16 16:07) Magnesium (Mg) (10/21/16 16:07) CKMB (10/21/16 16:15) CKMB% (10/21/16 16:15) Acetamin-Hydrocod 325-5 Mg ([place] 5-325 (10/21/16 18:45) Labs Laboratory Tests Test 10/21/16 16:15 White Blood Count 8.8 TH/MM3 Red Blood Count 3.72 MIL/MM3 Hemoglobin 11.0 GM/DL Hematocrit 33.3 % Mean Corpuscular Volume 89.5 FL Mean Corpuscular Hemoglobin 29.7 PG Mean Corpuscular Hemoglobin 33.2 % Concent Red Cell Distribution Width 15.2 % Platelet Count 196 TH/MM3 Mean Platelet Volume 8.8 FL Neutrophils (%) (Auto) 48.3 % Lymphocytes (%) (Auto) 37.2 % Monocytes (%) (Auto) 8.8 % Eosinophils (%) (Auto) 5.0 % Basophils (%) (Auto) 0.7 % Neutrophils # (Auto) 4.2 TH/MM3 Lymphocytes # (Auto) 3.3 TH/MM3 Monocytes # (Auto) 0.8 TH/MM3 Eosinophils # (Auto) 0.4 TH/MM3 Basophils # (Auto) 0.1 TH/MM3 CBC Comment DIFF FINAL Differential Comment Sodium Level 139 MEQ/L Potassium Level 4.0 MEQ/L Chloride Level 107 MEQ/L Carbon Dioxide Level 22.7 MEQ/L Anion Gap 9 MEQ/L Blood Urea Nitrogen 14 MG/DL Creatinine 1.09 MG/DL Estimat Glomerular Filtration 51 ML/MIN Rate Random Glucose 78 MG/DL Calcium Level 8.7 MG/DL Magnesium Level 2.0 MG/DL Total Bilirubin 0.2 MG/DL Aspartate Amino Transf 18 U/L (AST/SGOT) Alanine Aminotransferase 18 U/L (ALT/SGPT) Alkaline Phosphatase 99 U/L Total Creatine Kinase 180 U/L Creatine Kinase MB 0.8 NG/ML Troponin I LESS THAN 0.02 NG/ML Total Protein 7.0 GM/DL Albumin 3.5 GM/DL Lipase 174 U/L [facility] Medical Decision Making Medical Screen Exam Complete: Yes Emergency Medical Condition: Yes Interpretation(s) Last Impressions Chest X-Ray 10/21/16 1606 Signed Impressions: Service Date/Time: Friday, October 21, 2016 16:44 - CONCLUSION: 1. No acute cardiopulmonary disease. Abilio Wilson MD Laboratory Tests Test 10/21/16 16:15 White Blood Count 8.8 TH/MM3 Red Blood Count 3.72 MIL/MM3 Hemoglobin 11.0 GM/DL Hematocrit 33.3 % Mean Corpuscular Volume 89.5 FL Mean Corpuscular Hemoglobin 29.7 PG Mean Corpuscular Hemoglobin 33.2 % Concent Red Cell Distribution Width 15.2 % Platelet Count 196 TH/MM3 Mean Platelet Volume 8.8 FL Neutrophils (%) (Auto) 48.3 % Lymphocytes (%) (Auto) 37.2 % Monocytes (%) (Auto) 8.8 % Eosinophils (%) (Auto) 5.0 % Basophils (%) (Auto) 0.7 % Neutrophils # (Auto) 4.2 TH/MM3 Lymphocytes # (Auto) 3.3 TH/MM3 Monocytes # (Auto) 0.8 TH/MM3 Eosinophils # (Auto) 0.4 TH/MM3 Basophils # (Auto) 0.1 TH/MM3 CBC Comment DIFF FINAL Differential Comment Sodium Level 139 MEQ/L Potassium Level 4.0 MEQ/L Chloride Level 107 MEQ/L Carbon Dioxide Level 22.7 MEQ/L Anion Gap 9 MEQ/L Blood Urea Nitrogen 14 MG/DL Creatinine 1.09 MG/DL Estimat Glomerular Filtration 51 ML/MIN Rate Random Glucose 78 MG/DL Calcium Level 8.7 MG/DL Magnesium Level 2.0 MG/DL Total Bilirubin 0.2 MG/DL Aspartate Amino Transf 18 U/L (AST/SGOT) Alanine Aminotransferase 18 U/L (ALT/SGPT) Alkaline Phosphatase 99 U/L Total Creatine Kinase 180 U/L Creatine Kinase MB 0.8 NG/ML Troponin I LESS THAN 0.02 NG/ML Total Protein 7.0 GM/DL Albumin 3.5 GM/DL Lipase 174 U/L Last Impressions Chest X-Ray 10/21/16 1606 Signed Impressions: Service Date/Time: Friday, October 21, 2016 16:44 - CONCLUSION: 1. No acute cardiopulmonary disease. Abilio Wilson MD Vital Signs Date Time Temp Pulse Resp B/P Pulse Ox O2 Delivery O2 Flow Rate FiO2 10/21/16 16:04 98.1 78 18 95/54 95 Differential Diagnosis ACS versus pleurisy versus pneumonia versus arrhythmia versus other Narrative Course Patient is a 61-year-old female presenting with chest pain. Initially she stated it started at 1:30 this afternoon, she then stated it's been ongoing for the last 3 years intermittently. She's had negative cardiac cath in the past. Patient appears well, her vital signs are stable. Labs and imaging ordered and pending. CBC, chemistry, cardiac enzymes, lipase reviewed and are unremarkable. EKG is normal sinus rhythm. Patient was given a Lortab for pain. Due to the ongoing nature of her pain as well as a negative workup in the past. She will be discharged home with close follow-up with her primary doctor. He was given strict return precautions. She was encouraged to avoid tobacco use. She verbalized understanding of discharge instructions. Patient is stable for discharge. Diagnosis Primary Impression: Atypical chest pain Referrals: Primary Care Physician 2 days Patient Instructions: Chest Pain (ED), General Instructions Additional Instructions: Follow-up with your primary doctor Discontinue smoking Return to emergency department for any new or worsening symptoms Med/Other Pt SpecificInfo: No Change to Meds Disposition: 01 DISCHARGE HOME Condition: Stable Barb Self Oct 21, 2016 17:07
[2016-10-21 17:09] LABS: CKMB 0.8 NG/ML (0.5-3.6)
--- NOTE | 2016-10-21 17:22 | RADRPT ---
EXAM DATE/TIME: 10/21/2016 16:44 [facility] COMPARISON: CHEST SINGLE AP, April 17, 2016, 14:01. INDICATIONS : Chest pain. MEDICAL HISTORY : Hepatitis C SURGICAL HISTORY : Fusion, lumbar. heart catheterization tubal ligation ENCOUNTER: Initial ACUITY: 2 days PAIN SCORE: 6/10 LOCATION: Bilateral upper chest FINDINGS: A single view of the chest demonstrates the lungs to be symmetrically aerated without evidence of mas s, infiltrate or effusion. Lungs remain mildly hyper aerated. The cardiomediastinal contours are unr emarkable. Osseous structures are intact. CONCLUSION: 1. No acute cardiopulmonary disease. Abilio Wilson MD on October 21, 2016 at 17:19 Board Certified Radiologist. This report was verified electronically.
[2016-10-21 17:35] VITALS: BP 118/67; PULSE 80; RESP 20; O2SAT 99
[2016-10-21 18:22] LABS: ALT (GPT) 18 U/L (10-53); ANION GAP 9 MEQ/L (5-15); AST (GOT) 18 U/L (15-37); BICARBONATE 22.7 MEQ/L (21.0-32.0); BLOOD UREA NITROGEN 14 MG/DL (7-18); CHLORIDE 107 MEQ/L (98-107); GLOMERULAR FILTRATION RATE 51 ML/MIN (>89); SODIUM (NA) 139 MEQ/L (136-145)
[2016-10-21 18:25] LABS: ALKALINE PHOSPHATASE 99 U/L (45-117); TOTAL BILIRUBIN ADULT 0.2 MG/DL (0.2-1.0)
[2016-10-21] MEDS ORDERED: ACETAMINOPHEN/HYDROcodone 325 MG/5 MG TAB PO ONE (18:45)
--- NOTE | 2016-10-21 19:12 | PD ---
Data Data Last Documented VS Vital Signs Date Time Temp Pulse Resp B/P Pulse Ox O2 Delivery O2 Flow Rate FiO2 10/21/16 17:40 99 Room Air 10/21/16 17:35 80 20 118/67 10/21/16 16:04 98.1 Orders Electrocardiogram (10/21/16 16:06) Complete Blood Count With Diff (10/21/16 16:06) Ckmb (Isoenzyme) Profile (10/21/16 16:06) Troponin I (10/21/16 16:06) Chest, Single Ap (10/21/16 16:06) Iv Access Insert/Monitor (10/21/16 16:06) Ecg Monitoring (10/21/16 16:06) Oxygen Administration (10/21/16 16:06) Oximetry (10/21/16 16:06) Comprehensive Metabolic Panel (10/21/16 16:07) Lipase (10/21/16 16:07) Magnesium (Mg) (10/21/16 16:07) CKMB (10/21/16 16:15) CKMB% (10/21/16 16:15) Acetamin-Hydrocod 325-5 Mg ([place] 5-325 (10/21/16 18:45) Labs Laboratory Tests Test 10/21/16 16:15 White Blood Count 8.8 TH/MM3 Red Blood Count 3.72 MIL/MM3 Hemoglobin 11.0 GM/DL Hematocrit 33.3 % Mean Corpuscular Volume 89.5 FL Mean Corpuscular Hemoglobin 29.7 PG Mean Corpuscular Hemoglobin 33.2 % Concent Red Cell Distribution Width 15.2 % Platelet Count 196 TH/MM3 Mean Platelet Volume 8.8 FL Neutrophils (%) (Auto) 48.3 % Lymphocytes (%) (Auto) 37.2 % Monocytes (%) (Auto) 8.8 % Eosinophils (%) (Auto) 5.0 % Basophils (%) (Auto) 0.7 % Neutrophils # (Auto) 4.2 TH/MM3 Lymphocytes # (Auto) 3.3 TH/MM3 Monocytes # (Auto) 0.8 TH/MM3 Eosinophils # (Auto) 0.4 TH/MM3 Basophils # (Auto) 0.1 TH/MM3 CBC Comment DIFF FINAL Differential Comment Sodium Level 139 MEQ/L Potassium Level 4.0 MEQ/L Chloride Level 107 MEQ/L Carbon Dioxide Level 22.7 MEQ/L Anion Gap 9 MEQ/L Blood Urea Nitrogen 14 MG/DL Creatinine 1.09 MG/DL Estimat Glomerular Filtration 51 ML/MIN Rate Random Glucose 78 MG/DL Calcium Level 8.7 MG/DL Magnesium Level 2.0 MG/DL Total Bilirubin 0.2 MG/DL Aspartate Amino Transf 18 U/L (AST/SGOT) Alanine Aminotransferase 18 U/L (ALT/SGPT) Alkaline Phosphatase 99 U/L Total Creatine Kinase 180 U/L Creatine Kinase MB 0.8 NG/ML Troponin I LESS THAN 0.02 NG/ML Total Protein 7.0 GM/DL Albumin 3.5 GM/DL Lipase 174 U/L [facility] Supervised Visit with PHIL: Yes Narrative Course The history, exam, and medical decision-making in the associated mid-level provider note were completed with my assistance. I reviewed and agree with the findings presented. I attest that I had a [id number] encounter with the patient on the same day, and personally performed and documented my assessment and findings in the medical record. *My assessment and Findings: 61-year-old with atypical chest pain. She describes left-sided chest pain rate up to the jaw into the years, ongoing for hours at a time, occurring once every couple weeks or so. Not brought on by certain foods. Not brought on by exertion. Symptoms been ongoing again for the past several hours. Initial workups negative. She's had a catheter in the past several years ago that was negative for the same symptoms. She also has had a stress test back in March of last year for the same symptoms that was also negative. This does not sound cardiac. She does not have a gallbladder. We'll recommend outpatient follow-up. Diagnosis Primary Impression: Atypical chest pain Referrals: Primary Care Physician 2 days Patient Instructions: General Instructions, Narcotic given in the ED, Chest Pain (ED) Departure Forms: Tests/Procedures Additional Instruction: Follow-up with your primary doctor Discontinue smoking Return to emergency department for any new or worsening symptoms Disposition: 01 DISCHARGE HOME Condition: Stable Mark Coates MD Oct 21, 2016 19:12
--- NOTE | 2016-10-22 18:17 | EKG ---
Date Performed: 10/21/2016 Time Performed: 16:15:01 PTAGE: 61 years EKG: Sinus rhythm NORMAL ECG PREVIOUS TRACING : 04/17/2016 19.45 Compared to prior tracing no significant change DOCTOR: Nereida Gale Interpretating Date/Time 10/22/2016 18:15:41
[2016-10-26] MEDS ORDERED: BUTA1CAP PO (08:19)
== END 2016-10-21 18:53 | disposition home or self-care (01) ==
LOC: NEPD 15:29
DX: R07.89 Other chest pain (principal); R51 Headache; I10 Essential (primary) hypertension; B19.20 Unspecified viral hepatitis C without hepatic coma; Z72.0 Tobacco use
CPT/HCPCS: 71010; 80053; 82550; 82552; 83690; 83735; 84484; 85025; 93005

== ENCOUNTER 2017-02-19 16:01 | Emergency (ER) | payer OTHER, MEDICAID ==
[~2017-02-19 16:01] MED LIST changes: +ATOR20TA15 PO; -BUTA1CAP PO; +IBUP1TAB7 PO; -REME30TA PO
[2017-02-19 16:03] VITALS: BP 138/72; PULSE 108; RESP 14; TEMP 98.2; O2SAT 97
[2017-02-19] MEDS ORDERED: ASPI-516 CHEW (18:50)
--- NOTE | 2017-02-19 19:14 | PD ---
HPI Chief Complaint: Headache Time Seen by Provider: 18:52 Travel History International Travel<30 days: No Contact w/Intl Traveler<30days: No Traveled to known affect area: No History of Present Illness HPI 61-year-old female here for evaluation of headache and neck pain. The patient reports that the symptoms started 6 days ago. She has had similar symptoms in the past and they usually resolve after Excedrin, however this one is only mildly improving with Excedrin. Currently her pain is 7 out of 10, bitemporal, described as pounding. She is also having burning sensation in her bilateral upper arms. The pain radiates down into her bilateral lateral neck. She denies recent trauma. No fevers or chills. No photophobia. She feels nauseous but has not vomited. No visual disturbances. 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) GERD: No Genitourinary: No Hepatitis: Yes (HEP C TX IN 1988) Hiatal Hernia: No Heparin Induced Thrombocytopen: No Hypertension: Yes Immune Disorder: No Implanted Vascular Access Dvce: Yes Musculoskeletal: Yes (HX OF SPINAL ABCESS,DEGENERATIIVE JOINT DISEASE) Neurologic: No Psychiatric: Yes Reproductive: No Respiratory: No Immunizations Current: No Sickle Cell Disease: No Thyroid Disease: No Ulcer: No Tetanus Vaccination: < 5 Years Influenza Vaccination: Yes ?: Not Menopausal: Yes Tubal Ligation: Yes (1990) Past Surgical History Abdominal Surgery: Yes ( LAP CHOLY AND LIVER BX) Body Medical Devices: HARDWARE IN LUMBAR SPINE Cholecystectomy: Yes Coronary Artery Bypass Graft: No Ear Surgery: No Endocrine Surgery: No Eye Surgery: No Genitourinary Surgery: No Gynecologic Surgery: Yes (bilateral tubal ligation ) Neurologic Surgery: No Oral Surgery: No Other Surgery: Yes (spinal cage fusion l4 l5; liver biopsy) Social History Alcohol Use: No (PT DENIES) Tobacco Use: Yes (pack a day) Substance Use: No Allergies-Medications (Allergen,Severity, Reaction): Coded Allergies: cyclobenzaprine (Unverified Allergy, Severe, Restlessness, 02/19/17) Reported Meds & Prescriptions Reported Meds & Active Scripts Active Atorvastatin (Atorvastatin Calcium) 20 Mg Tab 20 Mg PO HS Lisinopril 10 Mg Tab 10 Mg PO DAILY Ativan (Lorazepam) 1 Mg Tab 1 Mg PO 2-3 DAILY PRN Zoloft (Sertraline HCl) 25 Mg Tab 25 Mg PO DAILY Seroquel (Quetiapine Fumarate) 25 Mg Tab 25 Mg PO BID Seroquel (Quetiapine Fumarate) 200 Mg Tab 200 Mg PO HS Reported Aspirin 81 Mg Chew 81 Mg CHEW DAILY Review of Systems Except as stated in HPI: all other systems reviewed are Neg Physical Exam Narrative GENERAL: Well-developed, well-nourished, comfortable, no apparent distress. SKIN: Focused skin assessment warm/dry. No rash. HEAD: Atraumatic. Normocephalic. EYES: Pupils equal, round, 3 mm, reactive to light. No scleral icterus. No injection or drainage. ENT: No nasal bleeding or discharge. Mucous membranes pink and moist. NECK: Trachea midline. No JVD. No nuchal rigidity. CARDIOVASCULAR: Regular rate and rhythm. No murmur appreciated. RESPIRATORY: No accessory muscle use. Clear to auscultation. Breath sounds equal bilaterally. GASTROINTESTINAL: Abdomen soft, non-tender, nondistended. MUSCULOSKELETAL: No obvious deformities. No clubbing. No cyanosis. No edema. NEUROLOGICAL: Awake and alert. No obvious cranial nerve deficits. Motor grossly within normal limits. Normal speech. Normal motor/sensory to bilateral upper and lower extremities. PSYCHIATRIC: Appropriate mood and affect; insight and judgment normal. Data Data Last Documented VS Vital Signs Date Time Temp Pulse Resp B/P (MAP) Pulse Ox O2 Delivery O2 Flow Rate FiO2 02/19/17 19:51 96 16 143/65 (91) 98 Room Air 02/19/17 16:03 98.2 Orders Orders Complete Blood Count With Diff (02/19/17 19:07) Comprehensive Metabolic Panel (02/19/17 19:07) Prothrombin Time / Inr (Pt) (02/19/17 19:07) Act Partial Throm Time (Ptt) (02/19/17 19:07) Urinalysis - C+S If Indicated (02/19/17 19:07) Iv Access Insert/Monitor (02/19/17 19:07) Ecg Monitoring (02/19/17 19:07) Oximetry (02/19/17 19:07) Sodium Chloride 0.9% Flush (Ns Flush) (02/19/17 19:15) Ketorolac Inj (Toradol Inj) (02/19/17 19:15) Metoclopramide Inj (Reglan Inj) (02/19/17 19:15) Sodium Chlor 0.9% 1000 Ml Inj (Ns 1000 M (02/19/17 19:15) Morphine Inj (Morphine Inj) (02/19/17 20:00) Ct Brain W/O Iv Contrast(Rout) (02/19/17 ) Ct Cerv Spine W/O Contrast (02/19/17 ) Cbc No Diff, Includes Plts (02/19/17 20:46) Admit Order (Ed Use Only) (02/19/17 21:26) Labs Laboratory Tests Test 02/19/17 19:25 02/19/17 19:45 02/19/17 20:52 White Blood Count 8.6 TH/MM3 8.2 TH/MM3 Red Blood Count 2.59 MIL/MM3 2.61 MIL/MM3 Hemoglobin 7.9 GM/DL 7.6 GM/DL Hematocrit 22.7 % 22.9 % Mean Corpuscular Volume 87.5 FL 87.7 FL Mean Corpuscular Hemoglobin 30.6 PG 29.0 PG Mean Corpuscular Hemoglobin Concent 35.0 % 33.1 % Red Cell Distribution Width 15.8 % 15.5 % Platelet Count 263 TH/MM3 269 TH/MM3 Mean Platelet Volume 7.9 FL 7.7 FL Neutrophils (%) (Auto) 55.8 % Lymphocytes (%) (Auto) 29.6 % Monocytes (%) (Auto) 8.1 % Eosinophils (%) (Auto) 5.5 % Basophils (%) (Auto) 1.0 % Neutrophils # (Auto) 4.8 TH/MM3 Lymphocytes # (Auto) 2.5 TH/MM3 Monocytes # (Auto) 0.7 TH/MM3 Eosinophils # (Auto) 0.5 TH/MM3 Basophils # (Auto) 0.1 TH/MM3 CBC Comment DIFF FINAL Differential Comment Prothrombin Time 10.3 SEC Prothromb Time International Ratio 0.9 RATIO Activated Partial Thromboplast Time 27.3 SEC Blood Urea Nitrogen 12 MG/DL Creatinine 1.08 MG/DL Random Glucose 109 MG/DL Total Protein 7.6 GM/DL Albumin 3.7 GM/DL Calcium Level 9.0 MG/DL Alkaline Phosphatase 103 U/L Aspartate Amino Transf (AST/SGOT) 17 U/L Alanine Aminotransferase (ALT/SGPT) 21 U/L Total Bilirubin 0.1 MG/DL Sodium Level 140 MEQ/L Potassium Level 4.0 MEQ/L Chloride Level 108 MEQ/L Carbon Dioxide Level 25.2 MEQ/L Anion Gap 7 MEQ/L Estimat Glomerular Filtration Rate 52 ML/MIN Urine Color LIGHT-YELLOW Urine Turbidity CLEAR Urine pH 6.0 Urine Specific [place] 1.012 Urine Protein NEG mg/dL Urine Glucose (UA) NEG mg/dL Urine Ketones NEG mg/dL Urine Occult Blood TRACE Urine Nitrite NEG Urine Bilirubin NEG Urine Urobilinogen LESS THAN 2.0 MG/DL Urine Leukocyte Esterase TRACE Urine RBC 2 /hpf Urine Squamous Epithelial Cells <1 /hpf Microscopic Urinalysis Comment CULT NOT INDICATED MDM Medical Decision Making Medical Screen Exam Complete: Yes Emergency Medical Condition: Yes Differential Diagnosis Tension headache, cluster headache, migraine headache, SAH/meningitis/ encephalitis unlikely, radiculopathy Narrative Course Initial vital signs show heart rate 108, blood pressure 138/72, pulse ox 97% on room air, oral temp of 98.2F. CBC: WBC 8.6, hemoglobin 7.9, hematocrit 22.7, platelets 23. CMP is essentially unremarkable. UA is not suggestive of UTI. Stool is heme-negative and brown. CT head: Normal exam. CT cervical spine: Normal exam. Stable small central bulge at C3-4 Repeat CBC shows hemoglobin 7.6, hematocrit 22.9. The patient does not usually anemic. Her last hemoglobin was in October of this year and was 11. Initially the patient's headache did not improve after Reglan and Toradol. She is given a dose of morphine with improvement in headache. She has become slightly lightheaded when going from sitting to standing. Her stool is heme negative and brown. She will be admitted for further treatment and evaluation of anemia without an obvious source. Case discussed with hospitalist Dr. Ovalles who will admit the patient to her service. [facility] Point of Care Internal Pos. & Neg. Controls: Passed Fecal Specimen Occult Blood: Negative Comment Heme negative/brown stool Diagnosis Primary Impression: Anemia Qualified Codes: D64.9 - Anemia, unspecified Additional Impression: Headache Qualified Codes: R51 - Headache Logan Gutierres MD Feb 19, 2017 19:14
[2017-02-19] MEDS ORDERED: SODIUM CHLOR 0.9% 1000 ML INJ 1,000 ML IV ONE (19:15)
[2017-02-19] MEDS ORDERED: METOCLOPRAMIDE HCL 10 MG/2 ML VIAL IV PUSH ONE (19:15)
[2017-02-19] MEDS ORDERED: SODIUM CHLORIDE 0.9% FLUSH 10 ML FLUSH IV FLUSH PRN ×2 (19:15→22:00)
[2017-02-19] MEDS ORDERED: KETOROLAC TROMETHAMINE 30 MG/ML (IVP) VIAL IV PUSH ONE (19:15)
[2017-02-19 19:45] LABS: AUTOMATED NEUTROPHIL # 4.8 TH/MM3 (1.8-7.7); BASOPHIL # 0.1 TH/MM3 (0-0.2); EOSINOPHIL # 0.5 TH/MM3 (0-0.4); EOSINOPHIL % 5.5 % (0.0-4.0); HEMATOCRIT 22.7 % (35.0-46.0); HEMO FLAGS DIFF FINAL; LYMPH % 29.6 % (9.0-44.0); LYMPHOCYTE # 2.5 TH/MM3 (1.0-4.8); MEAN CELL VOLUME 87.5 FL (80.0-100.0); MEAN CORPUSCULAR HEMOGLOBIN 30.6 PG (27.0-34.0); MONO % 8.1 % (0.0-8.0); NEUT % 55.8 % (16.0-70.0); PLATELET COUNT 263 TH/MM3 (150-450); RED BLOOD COUNT 2.59 MIL/MM3 (4.00-5.30); RED CELL DISTRIBUTION WIDTH 15.8 % (11.6-17.2); WHITE BLOOD COUNT 8.6 TH/MM3 (4.0-11.0)
[2017-02-19 19:51] VITALS: BP 143/65; PULSE 96; RESP 16; O2SAT 98
[2017-02-19 19:55] LABS: APTT (PATIENT) 27.3 SEC (24.3-30.1); INTERNATIONAL NORMALIZED RATIO 0.9 RATIO; PROTHROMBIN TIME - PATIENT 10.3 SEC (9.8-11.6)
[2017-02-19] MEDS ORDERED: MORPHINE SULFATE 4 MG/ML INJ IV PUSH ONE (20:00)
[2017-02-19 20:09] LABS: ALT (GPT) 21 U/L (10-53); ANION GAP 7 MEQ/L (5-15); AST (GOT) 17 U/L (15-37); BICARBONATE 25.2 MEQ/L (21.0-32.0); BLOOD UREA NITROGEN 12 MG/DL (7-18); CHLORIDE 108 MEQ/L (98-107); GLOMERULAR FILTRATION RATE 52 ML/MIN (>89); SODIUM (NA) 140 MEQ/L (136-145)
[2017-02-19 20:12] LABS: ALKALINE PHOSPHATASE 103 U/L (45-117); TOTAL BILIRUBIN ADULT 0.1 MG/DL (0.2-1.0)
[2017-02-19 20:20] LABS: BLOOD, URINE TRACE (NEG); COMMENT (UR) CULT NOT INDICATED; CULTURE IF INDICATED CULT NOT INDICATED; GLUCOSE,URINE NEG (NEG); KETONE, URINE NEG (NEG); NITRITE,URINE NEG (NEG); SQUAMOUS EPITHELIAL CELL URINE <1 /hpf (0-5); URINE COLOR LIGHT-YELLOW (YELLW/STRAW)
--- NOTE | 2017-02-19 20:30 | RADRPT ---
EXAM DATE/TIME: 02/19/2017 20:08 [facility] COMPARISON: CT BRAIN W/O CONTRAST, June 07, 2016, 9:52. INDICATIONS : Patient complains of migranes and neck pain for six days. RADIATION DOSE: 56.35 CTDIvol (mGy) MEDICAL HISTORY : Cardiovascular disease. Hypertension. SURGICAL HISTORY : Cholecystectomy. Tubal ligation. ENCOUNTER: Initial ACUITY: 1 day PAIN SCALE: 5/10 LOCATION: cranial TECHNIQUE: Multiple contiguous axial images were obtained of the head. Using automated exposure control and adj ustment of the mA and/or kV according to patient size, radiation dose was kept as low as reasonably a chievable to obtain optimal diagnostic quality images. DICOM format image data is available electro nically for review and comparison. FINDINGS: CEREBRUM: The ventricles are normal for age. No evidence of midline shift, mass lesion, hemorrhage or acute in farction. No extra-axial fluid collections are seen. POSTERIOR FOSSA: The cerebellum and brainstem are intact. The 4th ventricle is midline. The cerebellopontine angle i s unremarkable. EXTRACRANIAL: The visualized portion of the orbits is intact. SKULL: The calvaria is intact. No evidence of skull fracture. CONCLUSION: Normal examination. Mark Mac MD on February 19, 2017 at 20:25 Board Certified Radiologist. This report was verified electronically.
--- NOTE | 2017-02-19 20:39 | RADRPT ---
EXAM DATE/TIME: 02/19/2017 20:09 [facility] COMPARISON: CT CERVICAL SPINE W/O CONTRAST, June 07, 2016, 9:52. INDICATIONS : Patient complains of neck pain for six days. RADIATION DOSE: 30.59 CTDIvol (mGy) MEDICAL HISTORY : Cardiovascular disease. Hypertension. Hepatitis C. SURGICAL HISTORY : Cholecystectomy. Tubal ligation. ENCOUNTER: Initial ACUITY: 4 - 6 days PAIN SCALE: 5/10 LOCATION: neck TECHNIQUE: Volumetric scanning of the cervical spine was performed. Multiplanar reconstructions in the sagittal, coronal and oblique axial planes were performed. Using automated exposure control and adjustment o f the mA and/or kV according to patient size, radiation dose was kept as low as reasonably achievable to obtain optimal diagnostic quality images. DICOM format image data is available electronically f or review and comparison. FINDINGS: VERTEBRAE: Normal vertebral body height. ALIGNMENT: No evidence of subluxation. C2-C3: The bony spinal canal is normal in size. No evidence of disc bulge or herniation. The neural forami na are bilaterally patent. C3-C4: The bony spinal canal is normal in size. No evidence of disc bulge or herniation. The neural forami na are bilaterally patent. C4-C5: The bony spinal canal is normal in size. No evidence of disc bulge or herniation. The neural forami na are bilaterally patent. C5-C6: The bony spinal canal is normal in size. No evidence of disc bulge or herniation. The neural forami na are bilaterally patent. C6-C7: The bony spinal canal is normal in size. No evidence of disc bulge or herniation. The neural forami na are bilaterally patent. C7-T1: The bony spinal canal is normal in size. No evidence of disc bulge or herniation. The neural forami na are bilaterally patent. CONCLUSION: Normal examination. Stable small central bulge at C3-4. Mark Mac MD on February 19, 2017 at 20:37 Board Certified Radiologist. This report was verified electronically.
[2017-02-19 21:09] LABS: HEMATOCRIT 22.9 % (35.0-46.0); MEAN CELL VOLUME 87.7 FL (80.0-100.0); MEAN CORPUSCULAR HGB CONC 33.1 % (32.0-36.0); PLATELET COUNT 269 TH/MM3 (150-450); RED BLOOD COUNT 2.61 MIL/MM3 (4.00-5.30); RED CELL DISTRIBUTION WIDTH 15.5 % (11.6-17.2); REVIEW FLAG FINAL; WHITE BLOOD COUNT 8.2 TH/MM3 (4.0-11.0)
[2017-02-19] MEDS ORDERED: ACETAMINOPHEN 325 MG TAB PO PRN (22:00)
[2017-02-19] MEDS ORDERED: NALOXONE HCL 0.4 MG/ML AMP IV PUSH PRN (22:00)
[2017-02-19] MEDS ORDERED: ONDANSETRON HCL 4 MG/2 ML VIAL IVP PRN (22:00)
[2017-02-19 22:16] VITALS: BP 140/62; PULSE 86; RESP 16; O2SAT 99
[2017-02-20] MEDS ORDERED: SODIUM CHLORIDE 0.9% FLUSH 10 ML FLUSH IV FLUSH SCH (09:00)
== END 2017-02-19 22:34 | disposition left against medical advice (07) ==
LOC: NEPD 16:01 → NEDA 21:29 → UNDOADMOB 21:29 → NEPD 22:34
DX: D64.9 Anemia, unspecified (principal); R51 Headache; M54.2 Cervicalgia; M19.90 Unspecified osteoarthritis, unspecified site; F41.9 Anxiety disorder, unspecified; F32.9 Major depressive disorder, single episode, unspecified; E78.01 Familial hypercholesterolemia; I10 Essential (primary) hypertension; Z86.19 Personal history of other infectious and parasitic diseases
CPT/HCPCS: 70450; 72125; 80053; 81001; 85025; 85027; 85610; 85730; 96361; 96374; 96375; 99284; J1885; J2270; J2765; J7030

== ENCOUNTER 2017-02-20 18:21 | Observation (INO) | payer OTHER, MEDICAID ==
[~2017-02-20] VITALS: Ht 170.2 cm; Wt 87.0 kg
[~2017-02-20 18:21] MED LIST changes: +ASPI-516 CHEW; -ASPI1TAB69 PO; -IBUP1TAB7 PO
[2017-02-20 18:36] VITALS: BP 145/64; PULSE 89; RESP 18; TEMP 98.2; O2SAT 98
[2017-02-20 20:04] VITALS: BP 121/70; PULSE 81; RESP 18; O2SAT 100
[2017-02-20 20:05] VITALS: O2SAT 100
[2017-02-20] MEDS ORDERED: KETOROLAC TROMETHAMINE 60 MG/2 ML (IM) VIAL IM ONE (20:15)
[2017-02-20] MEDS ORDERED: ACETAMIN 325 MG/BUTALBITAL 50 MG/CAFFEINE 40 MG TAB PO ONE (20:15)
--- NOTE | 2017-02-20 20:20 | RADRPT ---
EXAM DATE/TIME: 02/20/2017 20:16 [facility] COMPARISON: CHEST SINGLE AP, October 21, 2016, 16:44. INDICATIONS : Chest pain. MEDICAL HISTORY : Hypertension. Hepatitis C SURGICAL HISTORY : Fusion, lumbar. heart catheterization tubal ligation. ENCOUNTER: Initial ACUITY: 1 week PAIN SCORE: 3/10 LOCATION: chest FINDINGS: A single view of the chest demonstrates the lungs to be symmetrically aerated without evidence of mas s, infiltrate or effusion. The cardiomediastinal contours are unremarkable. Osseous structures are intact. CONCLUSION: No acute disease. Eliazar Perales MD on February 20, 2017 at 20:18 Board Certified Radiologist. This report was verified electronically.
[2017-02-20 20:59] LABS: AUTOMATED NEUTROPHIL # 5.1 TH/MM3 (1.8-7.7); BASOPHIL # 0.1 TH/MM3 (0-0.2); EOSINOPHIL # 0.5 TH/MM3 (0-0.4); EOSINOPHIL % 5.4 % (0.0-4.0); HEMATOCRIT 23.6 % (35.0-46.0); HEMO FLAGS DIFF FINAL; LYMPH % 30.3 % (9.0-44.0); LYMPHOCYTE # 2.8 TH/MM3 (1.0-4.8); MEAN CELL VOLUME 87.1 FL (80.0-100.0); MEAN CORPUSCULAR HEMOGLOBIN 28.8 PG (27.0-34.0); MEAN CORPUSCULAR HGB CONC 33.1 % (32.0-36.0); NEUT % 55.3 % (16.0-70.0); PLATELET COUNT 282 TH/MM3 (150-450); RED BLOOD COUNT 2.72 MIL/MM3 (4.00-5.30); RED CELL DISTRIBUTION WIDTH 15.9 % (11.6-17.2); WHITE BLOOD COUNT 9.1 TH/MM3 (4.0-11.0)
[2017-02-20 21:08] LABS: APTT (PATIENT) 27.3 SEC (24.3-30.1); INTERNATIONAL NORMALIZED RATIO 0.9 RATIO; PROTHROMBIN TIME - PATIENT 10.4 SEC (9.8-11.6)
[2017-02-20 21:18] LABS: ANION GAP 11 MEQ/L (5-15); BICARBONATE 24.1 MEQ/L (21.0-32.0); BLOOD UREA NITROGEN 13 MG/DL (7-18); CHLORIDE 107 MEQ/L (98-107); GLOMERULAR FILTRATION RATE 46 ML/MIN (>89); POTASSIUM 4.6 MEQ/L (3.5-5.1); SODIUM (NA) 142 MEQ/L (136-145)
[2017-02-20 21:23] LABS: CREATINE KINASE 338 U/L (26-192)
[2017-02-20 21:35] LABS: CKMB 1.9 NG/ML (0.5-3.6)
[2017-02-20] MEDS ORDERED: traMADol HCL 50 MG TAB PO ONE (22:15)
--- NOTE | 2017-02-20 22:38 | PD ---
HPI Chief Complaint: Chest Pain Time Seen by Provider: 19:35 Travel History International Travel<30 days: No Contact w/Intl Traveler<30days: No Traveled to known affect area: No History of Present Illness HPI pt reports chest pain and headache off and on for 4 days and was in ER yesterday for same worked up and then left from the ER now returns astrid complaint 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) GERD: No Genitourinary: No Hepatitis: Yes (HEP C TX IN 1988) Hiatal Hernia: No Heparin Induced Thrombocytopen: No Hypertension: Yes Immune Disorder: No Implanted Vascular Access Dvce: Yes Musculoskeletal: Yes (HX OF SPINAL ABCESS,DEGENERATIIVE JOINT DISEASE) Neurologic: No Psychiatric: Yes Reproductive: No Respiratory: No Immunizations Current: No Sickle Cell Disease: No Thyroid Disease: No Ulcer: No Menopausal: Yes Tubal Ligation: Yes (1990) Past Surgical History Abdominal Surgery: Yes ( LAP CHOLY AND LIVER BX) Body Medical Devices: HARDWARE IN LUMBAR SPINE Cholecystectomy: Yes Coronary Artery Bypass Graft: No Ear Surgery: No Endocrine Surgery: No Eye Surgery: No Genitourinary Surgery: No Gynecologic Surgery: Yes (bilateral tubal ligation ) Neurologic Surgery: No Oral Surgery: No Other Surgery: Yes (spinal cage fusion l4 l5; liver biopsy) Social History Alcohol Use: No (PT DENIES) Tobacco Use: Yes (pack a day) Substance Use: No Allergies-Medications (Allergen,Severity, Reaction): Coded Allergies: cyclobenzaprine (Unverified Allergy, Severe, Restlessness, 02/20/17) Reported Meds & Prescriptions Reported Meds & Active Scripts Active Atorvastatin (Atorvastatin Calcium) 20 Mg Tab 20 Mg PO HS Lisinopril 10 Mg Tab 10 Mg PO DAILY Ativan (Lorazepam) 1 Mg Tab 1 Mg PO 2-3 DAILY PRN Zoloft (Sertraline HCl) 25 Mg Tab 25 Mg PO DAILY Seroquel (Quetiapine Fumarate) 25 Mg Tab 25 Mg PO BID Seroquel (Quetiapine Fumarate) 200 Mg Tab 200 Mg PO HS Reported Aspirin 81 Mg Chew 81 Mg CHEW DAILY Review of Systems Except as stated in HPI: all other systems reviewed are Neg HENT: Positive: Headaches Cardiovascular: Positive: Chest Pain or Discomfort Physical Exam Narrative GENERAL: patient has headache but in no apparent distress SKIN: Warm and dry. HEAD: Atraumatic. Normocephalic. EYES: Pupils equal and round. No scleral icterus. No injection or drainage. ENT: No nasal bleeding or discharge. Mucous membranes pink and moist. NECK: Trachea midline. No JVD. CARDIOVASCULAR: Regular rate and rhythm. RESPIRATORY: No accessory muscle use. Clear to auscultation. Breath sounds equal bilaterally. GASTROINTESTINAL: Abdomen soft, non-tender, nondistended. Hepatic and splenic margins not palpable. MUSCULOSKELETAL: Extremities without clubbing, cyanosis, or edema. No obvious deformities. NEUROLOGICAL: Awake and alert. No obvious cranial nerve deficits. Motor grossly within normal limits. Five out of 5 muscle strength in the arms and legs. Normal speech. PSYCHIATRIC: Appropriate mood and affect; insight and judgment normal. Data Data Last Documented VS Vital Signs Date Time Temp Pulse Resp B/P (MAP) Pulse Ox O2 Delivery O2 Flow Rate FiO2 02/20/17 20:05 100 Room Air 02/20/17 20:04 81 18 02/20/17 18:36 98.2 Orders Orders Electrocardiogram (02/20/17 19:49) Complete Blood Count With Diff (02/20/17 19:49) Basic Metabolic Panel (Bmp) (02/20/17 19:49) Ckmb (Isoenzyme) Profile (02/20/17 19:49) Troponin I (02/20/17 19:49) Chest, Single Ap (02/20/17 19:49) Iv Access Insert/Monitor (02/20/17 19:49) Ecg Monitoring (02/20/17 19:49) Oxygen Administration (02/20/17 19:49) Oximetry (02/20/17 19:49) Prothrombin Time / Inr (Pt) (02/20/17 19:49) Act Partial Throm Time (Ptt) (02/20/17 19:49) Ketorolac Inj (Toradol Inj) (02/20/17 20:15) Zicf-Nrkmm-Isbs 325-50-40 Mg (Fioricet 3 (02/20/17 20:15) CKMB (02/20/17 20:15) CKMB% (02/20/17 20:15) Tramadol (Ultram) (02/20/17 22:15) Oxycodone-Acetamin 5-325 Mg (Percocet (02/20/17 22:45) Admit Order (Ed Use Only) (02/20/17 ) Labs Laboratory Tests Test 02/20/17 20:15 White Blood Count 9.1 TH/MM3 Red Blood Count 2.72 MIL/MM3 Hemoglobin 7.8 GM/DL Hematocrit 23.6 % Mean Corpuscular Volume 87.1 FL Mean Corpuscular Hemoglobin 28.8 PG Mean Corpuscular Hemoglobin Concent 33.1 % Red Cell Distribution Width 15.9 % Platelet Count 282 TH/MM3 Mean Platelet Volume 7.6 FL Neutrophils (%) (Auto) 55.3 % Lymphocytes (%) (Auto) 30.3 % Monocytes (%) (Auto) 8.0 % Eosinophils (%) (Auto) 5.4 % Basophils (%) (Auto) 1.0 % Neutrophils # (Auto) 5.1 TH/MM3 Lymphocytes # (Auto) 2.8 TH/MM3 Monocytes # (Auto) 0.7 TH/MM3 Eosinophils # (Auto) 0.5 TH/MM3 Basophils # (Auto) 0.1 TH/MM3 CBC Comment DIFF FINAL Differential Comment Blood Smear Pathologist Review Prothrombin Time 10.4 SEC Prothromb Time International Ratio 0.9 RATIO Activated Partial Thromboplast Time 27.3 SEC Blood Urea Nitrogen 13 MG/DL Creatinine 1.20 MG/DL Random Glucose 91 MG/DL Calcium Level 8.8 MG/DL Sodium Level 142 MEQ/L Potassium Level 4.6 MEQ/L Chloride Level 107 MEQ/L Carbon Dioxide Level 24.1 MEQ/L Anion Gap 11 MEQ/L Estimat Glomerular Filtration Rate 46 ML/MIN Iron Level 75 MCG/DL Total Iron Binding Capacity 519 MCG/DL Percent Iron Saturation 14.4 % Total Creatine Kinase 338 U/L Creatine Kinase MB 1.9 NG/ML Creatine Kinase MB % 0.6 % Troponin I LESS THAN 0.02 NG/ML MDM Medical Decision Making Medical Screen Exam Complete: Yes Emergency Medical Condition: Yes Differential Diagnosis chest pain vs atypical CP ACS ischemia headache anemia Narrative Course fioricet toradol and without relief, anemia is significant but probably not causing headache . pt given 2 percocets for headache and EKG and trop negative admitted to investigate anemia with HEME/ONC Tin Carter MD Feb 20, 2017 22:38
[2017-02-20] MEDS ORDERED: oxyCODONE/ACETAMINOPHEN 5 MG/325 MG TAB PO ONE (22:45)
[2017-02-20] MEDS ORDERED: SODIUM CHLORIDE 0.9% FLUSH 10 ML FLUSH IV FLUSH PRN (23:30)
[2017-02-20] MEDS ORDERED: LORazepam 1 MG TAB PO PRN (23:45)
[2017-02-21] VITALS (17 sets, daily range): BP systolic 108–133; BP diastolic 57–80; PULSE 62–88; RESP 16–20; TEMP 97.8–98.5; O2SAT 94–98
[2017-02-21] MEDS ORDERED: MORPHINE SULFATE 2 MG/ML INJ IM PRN (00:45)
[2017-02-21] MEDS: ATORVASTATIN 20 MG TAB PO SCH ×2 (00:46→20:39)
[2017-02-21] MEDS: QUEtiapine FUMARATE 200 MG TAB PO SCH ×2 (00:46→20:39)
[2017-02-21 02:27] LABS: AUTOMATED NEUTROPHIL # 3.3 TH/MM3 (1.8-7.7); BASOPHIL # 0.1 TH/MM3 (0-0.2); BASOPHIL % 0.8 % (0.0-2.0); EOSINOPHIL # 0.4 TH/MM3 (0-0.4); LYMPH % 38.3 % (9.0-44.0); LYMPHOCYTE # 2.7 TH/MM3 (1.0-4.8); MEAN CORPUSCULAR HEMOGLOBIN 28.7 PG (27.0-34.0); MONO % 9.1 % (0.0-8.0); NEUT % 45.8 % (16.0-70.0); PLATELET COUNT 253 TH/MM3 (150-450); RED BLOOD COUNT 2.42 MIL/MM3 (4.00-5.30); WHITE BLOOD COUNT 7.1 TH/MM3 (4.0-11.0)
[2017-02-21 02:31] LABS: HEMO FLAGS DIFF FINAL
[2017-02-21] MEDS: MORPHINE SULFATE 2 MG/ML INJ IV PUSH PRN ×2 (02:38→09:31)
[2017-02-21 02:41] LABS: ANION GAP 7 MEQ/L (5-15); BICARBONATE 25.2 MEQ/L (21.0-32.0); BLOOD UREA NITROGEN 15 MG/DL (7-18); CHLORIDE 110 MEQ/L (98-107); GLOMERULAR FILTRATION RATE 48 ML/MIN (>89); POTASSIUM 3.9 MEQ/L (3.5-5.1); SODIUM (NA) 142 MEQ/L (136-145)
--- NOTE | 2017-02-21 02:44 | HHI.HP ---
[facility] Service [place] [facility] Primary Care Physician Unknown Admission Diagnosis anemia Diagnoses: Travel History International Travel<30 Days: No Contact w/Intl Traveler <30 Da: No Traveled to Known Affected Are: No History of Present Illness 61-year-old female presents to the emergency department for the second night complaining of chest pain and severe headache. The patient was found to have an H&H of 7.8/23.6 which is stable from yesterday where she was 7.6/22.9. The patient was admitted to observation yesterday for anemia workup however left AMA. In October, the patient's H&H was 11.0/33.3. She denies any melena. Was Hemoccult negative yesterday in the emergency department. Additionally, the patient complains of chest pain that she describes as a pressure that is intermittent and radiates down her bilateral upper extremities. She also endorses shortness of breath and a severe headache with accompanying back pain. Review of Systems Denies fever or chills Denies blurry vision, otorrhea, rhinorrhea Denies sore throat and cough Positive chest pain and shortness of breath No abdominal pain Denies constipation/diarrhea/nausea/vomiting Denies muscle pain/weakness No rashes Past Family Social History Past Medical History Hypertension Hyperlipidemia Depression Past Surgical History Cholecystectomy L4-L5 fusion Reported Medications Reported Meds & Active Scripts Active Atorvastatin (Atorvastatin Calcium) 20 Mg Tab 20 Mg PO HS Lisinopril 10 Mg Tab 10 Mg PO DAILY Ativan (Lorazepam) 1 Mg Tab 1 Mg PO 2-3 DAILY PRN Zoloft (Sertraline HCl) 25 Mg Tab 25 Mg PO DAILY Seroquel (Quetiapine Fumarate) 25 Mg Tab 25 Mg PO BID Seroquel (Quetiapine Fumarate) 200 Mg Tab 200 Mg PO HS Reported Aspirin 81 Mg Chew 81 Mg CHEW DAILY Allergies: Coded Allergies: cyclobenzaprine (Unverified Allergy, Severe, Restlessness, 02/20/17) Family History Both parents currently healthy. Diabetes on maternal grandmother side Social History Patient reports that she quit smoking yesterday. Endorses a 68-ipne-ynss history of smoking. Denies marijuana or illicit drugs. Quit alcohol in 1997. Physical Exam Vital Signs Vital Signs Date Time Temp Pulse Resp B/P (MAP) Pulse Ox O2 Delivery O2 Flow Rate FiO2 02/21/17 00:53 81 02/21/17 00:29 98.2 83 17 126/59 (81) 96 02/21/17 00:20 02/21/17 00:00 83 16 127/60 (82) 98 Room Air 02/20/17 20:05 100 Room Air 02/20/17 20:04 81 18 121/70 (87) 100 Room Air 02/20/17 18:36 98.2 89 18 145/64 (91) 98 Physical Exam GENERAL: White, obese female lying in bed SKIN: No rashes, ecchymoses or lesions. Cool and dry. HEAD: Atraumatic. Normocephalic. No temporal or scalp tenderness. EYES: Pupils equal round and reactive. Extraocular motions intact. No scleral icterus. No injection or drainage. ENT: Nose without bleeding, purulent drainage or septal hematoma. Throat without erythema, tonsillar hypertrophy or exudate. Uvula midline. Airway patent. NECK: Trachea midline. No JVD or lymphadenopathy. Supple, nontender, no meningeal signs. CARDIOVASCULAR: Regular rate and rhythm without murmurs, gallops, or rubs. RESPIRATORY: Clear to auscultation. Breath sounds equal bilaterally. No wheezes , rales, or rhonchi. GASTROINTESTINAL: Abdomen soft, non-tender, nondistended. No hepato-splenomegaly , or palpable masses. No guarding. MUSCULOSKELETAL: Extremities without clubbing, cyanosis, or edema. No joint tenderness, effusion, or edema noted. NEUROLOGICAL: Awake and alert. Cranial nerves II through XII intact. Motor and sensory grossly within normal limits. Normal speech. Laboratory Laboratory Tests Test 02/20/17 20:15 02/21/17 01:09 White Blood Count 9.1 Red Blood Count 2.72 Hemoglobin 7.8 Hematocrit 23.6 Mean Corpuscular Volume 87.1 Mean Corpuscular Hemoglobin 28.8 Mean Corpuscular Hemoglobin Concent 33.1 Red Cell Distribution Width 15.9 Platelet Count 282 Mean Platelet Volume 7.6 Neutrophils (%) (Auto) 55.3 Lymphocytes (%) (Auto) 30.3 Monocytes (%) (Auto) 8.0 Eosinophils (%) (Auto) 5.4 Basophils (%) (Auto) 1.0 Neutrophils # (Auto) 5.1 Lymphocytes # (Auto) 2.8 Monocytes # (Auto) 0.7 Eosinophils # (Auto) 0.5 Basophils # (Auto) 0.1 CBC Comment DIFF FINAL Differential Comment Blood Smear Pathologist Review Prothrombin Time 10.4 Prothromb Time International Ratio 0.9 Activated Partial Thromboplast Time 27.3 Blood Urea Nitrogen 13 Creatinine 1.20 Random Glucose 91 Calcium Level 8.8 Sodium Level 142 Potassium Level 4.6 Chloride Level 107 Carbon Dioxide Level 24.1 Anion Gap 11 Estimat Glomerular Filtration Rate 46 Total Creatine Kinase 338 Creatine Kinase MB 1.9 Creatine Kinase MB % 0.6 Troponin I LESS THAN 0.02 Result Diagram: 02/20/17201402/20/172014 Josérinkehinde VTE Risk Assessment Osmar VTE Risk Assessment: Mod/High Risk (score >= 2) Caprini Risk Assessment Model Point Value = 1 Point Value = 2 Point Value = 3 Point Value = 5 Age 41-60 Minor surgery BMI > 25 kg/m2 Swollen legs Varicose veins or History of unexplained or recurrent spontaneous Oral contraceptives or hormone replacement Sepsis (< 1 month) Serious lung disease, including pneumonia (< 1 month) Abnormal pulmonary function Acute myocardial infarction Congestive heart failure (< 1 month) History of inflammatory bowel disease Medical patient at bed rest Age 61-74 Arthroscopic surgery Major open surgery (> 45 min) Laparoscopic surgery (> 45 min) Malignancy Confined to bed (> 72 hours) Immobilizing plaster cast Central venous access Age >= 75 History of VTE Family history of VTE Factor V Leiden Prothrombin [id number] Lupus anticoagulant Anticardiolipin antibodies Elevated serum homocysteine Heparin-induced thrombocytopenia Other congenital or acquired thrombophilia Stroke (< 1 month) Elective arthroplasty Hip, pelvis, or leg fracture Acute spinal cord injury (< 1 month) Prophylaxis Regimen Total Risk Factor Score Risk Level Prophylaxis Regimen 0-1 Low Early ambulation 2 Moderate Order ONE of the following: *Sequential Compression Device (SCD) *Heparin 5000 units SQ BID 3-4 Higher Order ONE of the following medications: *Heparin 5000 units SQ TID *Enoxaparin/Lovenox 40 mg SQ daily (WT < 150 kg, CrCl > 30 mL/min) *Enoxaparin/Lovenox 30 mg SQ daily (WT < 150 kg, CrCl > 10-29 mL/min) *Enoxaparin/Lovenox 30 mg SQ BID (WT < 150 kg, CrCl > 30 mL/min) AND/OR *Sequential Compression Device (SCD) 5 or more Highest Order ONE of the following medications: *Heparin 5000 units SQ TID (Preferred with Epidurals) *Enoxaparin/Lovenox 40 mg SQ daily (WT < 150 kg, CrCl > 30 mL/min) *Enoxaparin/Lovenox 30 mg SQ daily (WT < 150 kg, CrCl > 10-29 mL/min) *Enoxaparin/Lovenox 30 mg SQ BID (WT < 150 kg, CrCl > 30 mL/min) AND *Sequential Compression Device (SCD) Assessment and Plan Assessment and Plan 61-year-old female with a past medical history significant for hyperlipidemia and hypertension presents to the emergency department with new anemia of unknown origin 1. Anemia H&H 6.9/21.0, decreased from 7.8 on admission Transfuse 1 unit packed red blood cells Peripheral smear, iron studies pending Hematology consulted, appreciate assistance 2. Chest pain Initial troponin negative, EKG without ST changes ACS rule out including serial troponins and EKGs Morphine for pain Likely secondary to anemia 3. Hypertension Continue home lisinopril 4. Hyperlipidemia Continue home statin FEN Nothing by mouth Electrolytes within normal limits, continue to monitor Pharmacologic anticoagulation contraindicated given severe anemia of unknown origin Yue Ovalles MD Feb 21, 2017 02:44
[2017-02-21 02:45] LABS: CREATINE KINASE 272 U/L (26-192)
[2017-02-21] MEDS ORDERED: SODIUM CHLOR 0.9% 250 ML INJ 250 ML IV ONE (02:45)
[2017-02-21 02:57] LABS: CKMB 1.7 NG/ML (0.5-3.6)
[2017-02-21 04:06] LABS: TRANSFERRIN IRON PROFILE 371 MG/DL (200-360)
[2017-02-21] MEDS ORDERED: QUEtiapine FUMARATE 25 MG TAB PO SCH (09:00)
[2017-02-21] MEDS ORDERED: PNEUMOCOCCAL POLYVALENT INJ 25 MCG/0.5 ML SYR IM ONE (09:00)
[2017-02-21] MEDS ORDERED: INFLUENZA VIRUS VACCINE (QUADRIVALENT) 0.5 ML SYR IM ONE (09:00)
[2017-02-21] MEDS: LISINOPRIL 10 MG TAB PO SCH (09:31)
[2017-02-21] MEDS: SERTRALINE HCL 50 MG TAB PO SCH (09:31)
[2017-02-21] MEDS: SODIUM CHLORIDE 0.9% FLUSH 10 ML FLUSH IV FLUSH SCH ×2 (09:31→20:39)
[2017-02-21] MEDS: QUEtiapine FUMARATE 25 MG TAB PO SCH ×2 (09:31→12:49)
--- NOTE | 2017-02-21 10:27 | HHI.PR ---
Subjective Remarks Follow up for anemia, chest pain, headache. The patient is seen shortly after transfusion started. She reports continue diffuse global headache, not relieved by IV morphine. She actually believes the morphine might've made the headache worse. She states the percocet given to her in the ED helped the headache previously and she would like to try that again. Denies any blurred vision, lightheadedness, dizziness. She denies any current chest pain but states she did have intermittent pressure pains throughout the night. She has recently noticed shortness of breath worse with exertion such as going for long walks. She states approximately 3 years ago she had a stress test and cardiac catheterization with Dr. Guaman that was reportedly unremarkable. The patient denies any recent hematuria, hematochezia, or melena. She denies any recent surgeries. She denies any history of uterine fibroids. She has lost 12lbs in the past 3 months which she attributes to being more active recently. She has no other medical complaints at this time. Objective Vitals Vital Signs Date Time Temp Pulse Resp B/P (MAP) Pulse Ox O2 Delivery O2 Flow Rate FiO2 02/21/17 09:48 97.9 75 17 118/74 95 02/21/17 09:48 17 02/21/17 08:40 97.9 18 120/69 (86) 96 02/21/17 08:40 97.9 72 18 120/69 96 02/21/17 04:00 79 02/21/17 03:52 84 02/21/17 03:29 98.0 84 16 116/65 (82) 95 02/21/17 00:53 81 02/21/17 00:29 98.2 83 17 126/59 (81) 96 02/21/17 00:20 02/21/17 00:00 83 16 127/60 (82) 98 Room Air 02/20/17 20:05 100 Room Air 02/20/17 20:04 81 18 121/70 (87) 100 Room Air 02/20/17 18:36 98.2 89 18 145/64 (91) 98 I/O 02/20/17 02/20/17 02/20/17 02/21/17 02/21/17 02/21/17 07:00 15:00 23:00 07:00 15:00 23:00 Intake Total 5 ml Balance 5 ml Intake Blood Product IV Normal Saline Flush 5 ml Result Diagram: 02/21/1710802/21/17108 Imaging Last Impressions Chest X-Ray 02/20/171948 Signed Impressions: Service Date/Time: Monday, February 20, 2017 20:16 - CONCLUSION: No acute disease. Eliazar Perales MD Objective Remarks GENERAL: Well-nourished, well-developed pleasant middle aged female patient in [employer]. SKIN: Warm and dry. No rash. HEENT: Normocephalic. Atraumatic. Pupils equal and round. Mucous membranes pink and moist. NECK: Supple. Trachea midline. CARDIOVASCULAR: Regular rate and rhythm. S1, S2 noted. No murmur appreciated. RESPIRATORY: No accessory muscle use. Clear to auscultation. Breath sounds equal bilaterally. GASTROINTESTINAL: Abdomen soft, non-tender, nondistended. Normoactive bowel sounds x4. MUSCULOSKELETAL: No obvious deformities. Extremities without clubbing, cyanosis , or edema. NEUROLOGICAL: Awake and alert. No obvious cranial nerve deficits. Motor grossly within normal limits. Normal speech. PSYCHIATRIC: Appropriate mood and affect; insight and judgment normal. Medications and IVs Current Medications Medications (Trade) Dose Ordered Sig/Beth Route Start Time Stop Time Status Last Admin (NS Flush) 2 ml BID IV FLUSH 02/21/17 09:00 02/21/17 09:31 (NS Flush) 2 ml UNSCH PRN IV FLUSH 02/20/17 23:30 (Tylenol) 500 mg Q4H PRN PO 02/20/17 23:30 (Lipitor) 20 mg HS PO 02/20/17 23:45 02/21/17 00:46 (Prinivil) 10 mg DAILY PO 02/21/17 09:00 02/21/17 09:31 (Ativan) 1 mg Q8H PRN PO 02/20/17 23:45 (SEROquel) 200 mg HS PO 02/20/17 23:45 02/21/17 00:46 (Zoloft) 25 mg DAILY PO 02/21/17 09:00 02/21/17 09:31 (SEROquel) 25 mg BID@09,12 PO 02/21/17 09:00 02/21/17 09:31 Sodium Chloride 250 ml @ 15 mls/hr ONCE ONCE IV 02/21/17 02:45 02/21/17 19:24 02/21/17 08:54 (Percocet 5-325 Mg) 2 tab ONCE ONCE PO 02/21/17 10:30 02/21/17 10:31 UNV (Percocet 5-325 Mg) 1 tab Q6H PRN PO 02/21/17 14:00 UNV A/P Problem List: (1) Anemia ICD Code: D64.9 - Anemia, unspecified Status: Acute (2) Headache ICD Code: R51 - Headache Status: Acute (3) Atypical chest pain ICD Code: R07.89 - Other chest pain Status: Acute Assessment and Plan 61-year-old female with history of HTN, HLD, Depression, presents with headache and chest pain Severe Anemia: Hgb 6.9, Hct 21.0. Unclear etiology. Hemoccult negative in the ED on 02/20. CT abdomen/pelvis done 08/08/16 images reviewed and unremarkable. -1u pRBC transfusion ordered -Iron studies with iron 75, TIBC 519, % sat 14.4 -Check ferritin, B12, folate -Repeat CBC following transfusion -Consult hematology for further work up Headache: suspect secondary to above. Pain temporarily relieved by percocet in the ED. -Will continue with tylenol and percocet prn pain -Monitor for improvement Chest Pain: also suspect secondary to anemia. Cardiac catheterization 01/08/[address] Guaman showed mild to moderate nonobstructive coronary disease at proximal circumflex with 50% stenosis; 10-20% stenoses in LAD and right coronary ; EF 65-70%; likely non cardiac chest pain. Nuclear stress test 04/18/16 showed no reversible perfusion defects; no ischemia. -Continue to rule out ACS with serial cardiac enzymes and EKGs, first 2 sets negative -Continue patient's statin, lisinopril, held aspirin for now with anemia -Monitor on telemetry -expect symptoms to improve after transfusion HTN/HLD: chronic, stable -continue patient's lisinopril and statin -monitor BP, adjust antihypertensives as needed All other medical conditions stable, continue home medications as appropriate. DVT Prophylaxis: teds/SCDs, avoid chemoprophylaxis with anemia Discharge Planning Discharge pending transfusion, further clinical improvement, and hematology evaluation. Peg Stone PA-C Feb 21, 2017 10:27 am
[2017-02-21] MEDS ORDERED: oxyCODONE/ACETAMINOPHEN 5 MG/325 MG TAB PO ONE (11:15)
--- NOTE | 2017-02-21 12:37 | EKG ---
Date Performed: 02/20/2017 Time Performed: 20:00:26 PTAGE: 61 years EKG: Sinus rhythm LOW QRS VOLTAGE IN PRECORDIAL LEADS BORDERLINE ECG PREVIOUS TRACING : 10/21/2016 16.15 Compared to prior tracing no significant change DOCTOR: Pawan Salazar Interpretating Date/Time 02/21/2017 12:33:29
--- NOTE | 2017-02-21 12:37 | EKG ---
Date Performed: 02/21/2017 Time Performed: 02:16:53 PTAGE: 61 years EKG: Sinus rhythm LOW QRS VOLTAGE IN PRECORDIAL LEADS BORDERLINE ECG PREVIOUS TRACING : 02/20/2017 20.00 Compared to prior tracing no significant change DOCTOR: Pawan Salazar Interpretating Date/Time 02/21/2017 12:33:36
--- NOTE | 2017-02-21 13:06 | EKG ---
Date Performed: 02/21/2017 Time Performed: 09:03:37 PTAGE: 61 years EKG: Sinus rhythm NORMAL ECG PREVIOUS TRACING : 02/21/2017 02.16 No significant change from previous tracing noted. DOCTOR: Hood Grissom Interpretating Date/Time 02/21/2017 13:06:30
[2017-02-21 14:05] LABS: RETIC % 3.4 % (0.4-3.0); REVIEW FLAG FINAL
[2017-02-21] MEDS: oxyCODONE/ACETAMINOPHEN 5 MG/325 MG TAB PO PRN ×2 (16:57→22:52)
[2017-02-21 17:40] LABS: FREE T4 0.6 NG/DL (0.76-1.46); TOTAL PROTEIN SPE 6.7 GM/DL (6.0-7.6)
[2017-02-21 18:26] LABS: CREATINE KINASE 378 U/L (26-192); FERRITIN 6 NG/ML (8-252); TRANSFERRIN IRON PROFILE 334 MG/DL (200-360)
[2017-02-21 18:38] LABS: CKMB 1.1 NG/ML (0.5-3.6)
[2017-02-21] MEDS: ACETAMINOPHEN 500 MG CPLT PO PRN (20:39)
[2017-02-22] VITALS (10 sets, daily range): BP systolic 107–131; BP diastolic 57–69; PULSE 75–91; RESP 16–19; TEMP 98.3–99.5; O2SAT 93–97
[2017-02-22] MEDS: oxyCODONE/ACETAMINOPHEN 5 MG/325 MG TAB PO PRN ×3 (06:45→20:18)
--- NOTE | 2017-02-22 07:27 | MB ---
cc: PHILIPPE LYON MD DATE OF CONSULTATION 02/21/2017 CHIEF COMPLAINT Anemia. HISTORY OF PRESENT ILLNESS Ms. Varela is a 61-year-old lady with a history of hepatitis C status post treatment, hypertension, hyperlipidemia and depression who presented to the [place] complaining of chest pain and headache. She was admitted for observation the day prior, however, she left AMA. She returns again today. She reports that aside from the chest pain and headache she has been in her normal state of health. She denies hematuria, blood in her stool or vaginal bleeding. Her hemoccult was negative on February 20 in the emergency room. In our emergency department the chest x-ray was negative. CT scan of the cervical spine was normal and head CT was also normal. Laboratory studies showed a hemoglobin of 6.9. Yesterday when she presented to the ED her hemoglobin was 7.8. From past values at this facility, her hemoglobin from October 2016 was 7.9. Her hemoglobin from July 2016 was 12. Her hemoglobin from 2015 ranged from 11-12 and her hemoglobin from 2014 ranged from 12-13. Her MCV is 87. ANC within normal limits and it has been within normal limits throughout the years. Platelet count is 253,000 and has been within normal limits throughout the years and her total white blood cell count has been within normal limits throughout the year. Coags normal. Creatinine is elevated at 1.16. Her creatinine in 2013 was 0.6, creatinine in 2014 was approximately 0.7 and creatinine in 2015 with approximately 0.9. Her EGFR from today was 48. In 2013 EGFR ranged anywhere from 70-90, in 2014 ranged from 50-80 and in 2016 ranged approximately 50-60. Iron was 75. Total iron-binding capacity 519 and percent sat is 14.4, total bili is 0.1, AST, ALT, alk phos within normal limits. Total protein is 7.6 with an albumin of 3.7. She also reports no change to her home medications, no herbals or ksea-swv-agbkshk medicines. PAST MEDICAL HISTORY 1. Hepatitis C status post treatment. 2. Hypertension. 3. Hyperlipidemia. 4. Depression. 5. Anxiety. PAST SURGICAL HISTORY 1. Cholecystectomy in 2014. 2. Liver biopsy in 2014. 3. Tubal in 1990. 4. Spinal fusion of L4-L5. FAMILY HISTORY She reports that her maternal grandmother had throat cancer. No thyroid knowledge of any family members with cancer or blood disorders. SOCIAL HISTORY She reports tobacco abuse and she quit alcohol abuse. ALLERGIES FLEXERIL. MEDICATIONS 1. Atorvastatin. 2. Lisinopril. 3. Zoloft. 4. Seroquel. REVIEW OF SYSTEMS Positive for chest pain and positive for headaches. All other review of systems are negative. PHYSICAL EXAMINATION GENERAL: A well-developed, well-nourished lady, resting comfortably in bed. HEAD: Normocephalic, atraumatic. NECK: Supple with no palpable lymphadenopathy. EYES: Pupils equal, round and reactive. No scleral icterus. CARDIOVASCULAR: Regular rate and rhythm with no murmurs, gallops or rubs. CHEST: Clear to auscultation in bilateral lung garza. ABDOMEN: Soft, nontender, nondistended with bowel sounds present. EXTREMITIES: With no edema. HEME: No bruising. ASSESSMENT AND PLAN 1. Anemia, uncertain of etiology. Laboratory studies that are pending include vitamin B12, folate and ferritin. Will order reticulocyte count, TSH and T4, urinalysis to assess for blood, haptoglobin, protein electrophoresis and LDH. We will await pathology review of the smear. The patient is currently receiving 1 unit of blood. Will continue to follow while inpatient. Philippe Lyon MD OLIVA/SSB /2:25 PM /8:12 AM ABDULAZIZ
[2017-02-22 08:07] LABS: AUTOMATED NEUTROPHIL # 5.5 TH/MM3 (1.8-7.7); BASOPHIL # 0.1 TH/MM3 (0-0.2); BASOPHIL % 0.7 % (0.0-2.0); EOSINOPHIL # 0.4 TH/MM3 (0-0.4); EOSINOPHIL % 4.9 % (0.0-4.0); HEMATOCRIT 25.9 % (35.0-46.0); HEMO FLAGS DIFF FINAL; LYMPH % 24.1 % (9.0-44.0); LYMPHOCYTE # 2.1 TH/MM3 (1.0-4.8); MEAN CELL VOLUME 85.6 FL (80.0-100.0); MEAN CORPUSCULAR HEMOGLOBIN 28.9 PG (27.0-34.0); MEAN CORPUSCULAR HGB CONC 33.8 % (32.0-36.0); MONO % 7.4 % (0.0-8.0); NEUT % 62.9 % (16.0-70.0); PLATELET COUNT 270 TH/MM3 (150-450); RED BLOOD COUNT 3.02 MIL/MM3 (4.00-5.30); RED CELL DISTRIBUTION WIDTH 15.8 % (11.6-17.2); WHITE BLOOD COUNT 8.7 TH/MM3 (4.0-11.0)
[2017-02-22 08:17] LABS: BICARBONATE 26.3 MEQ/L (21.0-32.0); POTASSIUM 4.1 MEQ/L (3.5-5.1)
[2017-02-22] MEDS ORDERED: CYANOCOBALAMIN 1000 MCG/ML VIAL IM ONE (09:00)
[2017-02-22] MEDS ORDERED: ACETAMIN 325 MG/BUTALBITAL 50 MG/CAFFEINE 40 MG TAB PO ONE (10:00)
[2017-02-22] MEDS: SERTRALINE HCL 50 MG TAB PO SCH (10:02)
[2017-02-22] MEDS: LISINOPRIL 10 MG TAB PO SCH (10:02)
[2017-02-22] MEDS: SODIUM CHLORIDE 0.9% FLUSH 10 ML FLUSH IV FLUSH SCH ×2 (10:02→20:19)
[2017-02-22] MEDS: QUEtiapine FUMARATE 25 MG TAB PO SCH ×2 (10:02→12:01)
--- NOTE | 2017-02-22 10:02 | HHI.PR ---
Subjective Remarks Follow up for anemia, headache, chest pain. The patient reports not feeling well today. She has continued diffuse global headache, associated with some nausea earlier today, but no vomiting. Denies any abdominal pain, diarrhea, or melena. Her chest pain has resolved. Denies any lightheadedness or dizziness. She has no other medical complaints at this time. Objective Vitals Vital Signs Date Time Temp Pulse Resp B/P (MAP) Pulse Ox O2 Delivery O2 Flow Rate FiO2 02/22/17 08:11 99.5 86 16 114/58 (76) 97 02/22/17 04:00 87 02/22/17 03:55 99.0 89 19 131/61 (84) 94 02/22/17 00:00 84 02/21/17 23:53 98.3 88 19 108/57 (74) 94 02/21/17 20:54 98.2 80 18 128/59 (82) 95 02/21/17 20:00 81 02/21/17 18:08 15 02/21/17 17:17 78 02/21/17 16:41 97.9 84 20 120/65 (83) 96 02/21/17 12:45 98.5 74 16 119/72 96 02/21/17 12:13 97.8 62 120/60 (80) 98 02/21/17 10:59 79 02/21/17 10:42 98.3 76 18 133/80 96 I/O 02/21/17 02/21/17 02/21/17 02/22/17 02/22/17 02/22/17 07:00 15:00 23:00 07:00 15:00 23:00 Intake Total 410 ml Balance 410 ml Packed Cells 400 ml Blood Product IV Normal Saline Flush 10 ml # Voids 1 Result Diagram: 02/22/17 0640 02/22/17 0640 Imaging Last Impressions Chest X-Ray 02/20/171948 Signed Impressions: Service Date/Time: Monday, February 20, 2017 20:16 - CONCLUSION: No acute disease. Eliazar Perales MD Objective Remarks GENERAL: Well-nourished, well-developed pleasant middle aged female patient in [facility]. SKIN: Warm and dry. No rash. HEENT: Normocephalic. Atraumatic. Pupils equal and round. Mucous membranes pink and moist. CARDIOVASCULAR: Regular rate and rhythm. S1, S2 noted. No murmur appreciated. RESPIRATORY: No accessory muscle use. Clear to auscultation. Breath sounds equal bilaterally. GASTROINTESTINAL: Abdomen soft, non-tender, nondistended. Normoactive bowel sounds x4. MUSCULOSKELETAL: No obvious deformities. Extremities without clubbing, cyanosis , or edema. NEUROLOGICAL: Awake and alert. No obvious cranial nerve deficits. Motor grossly within normal limits. Normal speech. PSYCHIATRIC: Appropriate mood and affect; insight and judgment normal. Medications and IVs Current Medications Medications (Trade) Dose Ordered Sig/Beth Route Start Time Stop Time Status Last Admin (NS Flush) 2 ml BID IV FLUSH 02/21/17 09:00 02/21/17 20:39 (NS Flush) 2 ml UNSCH PRN IV FLUSH 02/20/17 23:30 (Tylenol) 500 mg Q4H PRN PO 02/20/17 23:30 02/21/17 20:39 (Lipitor) 20 mg HS PO 02/20/17 23:45 02/21/17 20:39 (Prinivil) 10 mg DAILY PO 02/21/17 09:00 02/21/17 09:31 (Ativan) 1 mg Q8H PRN PO 02/20/17 23:45 (SEROquel) 200 mg HS PO 02/20/17 23:45 02/21/17 20:39 (Zoloft) 25 mg DAILY PO 02/21/17 09:00 02/21/17 09:31 (SEROquel) 25 mg BID@09,12 PO 02/21/17 09:00 02/21/17 12:49 (Percocet 5-325 Mg) 1 tab Q6H PRN PO 02/21/17 14:00 02/22/17 06:45 A/P Problem List: (1) Anemia ICD Code: D64.9 - Anemia, unspecified Status: Acute (2) Headache ICD Code: R51 - Headache Status: Acute (3) Atypical chest pain ICD Code: R07.89 - Other chest pain Status: Acute Assessment and Plan 61-year-old female with history of HTN, HLD, Depression, presents with headache and chest pain Severe Anemia: Hgb 6.9, Hct 21.0. Unclear etiology. Hemoccult negative in the ED on 02/20. CT abdomen/pelvis done 08/08/16 images reviewed and unremarkable. -1u pRBC transfused 02/21 -Iron studies with iron 75, TIBC 519, % sat 14.4, ferritin 6, B12 272, folate 19.2 -Repeat CBC following transfusion showed improvement with Hgb 8.7 -Consulted hematology for further work up, appreciate recommendations -awaiting peripheral smear Headache: suspect secondary to above. Pain temporarily relieved by percocet in the ED. -Continue with tylenol and percocet prn pain -Monitor for improvement -patient still with headache, will try Fioricet x1 now and q6h prn Chest Pain: also suspect secondary to anemia. Cardiac catheterization 01/08/[address] Gauman showed mild to moderate nonobstructive coronary disease at proximal circumflex with 50% stenosis; 10-20% stenoses in LAD and right coronary ; EF 65-70%; likely non cardiac chest pain. Nuclear stress test 04/18/16 showed no reversible perfusion defects; no ischemia. -ACS ruled out with negative serial cardiac enzymes x3 and EKG without acute ischemic changes. -Continue patient's statin, lisinopril, held aspirin for now with anemia -Monitor on telemetry -symptoms resolved following transfusion HTN/HLD: chronic, stable -continue patient's lisinopril and statin -monitor BP, adjust antihypertensives as needed Vitamin B12 Deficiency: b12 borderline low -with anemia, will give cyanocobalamin 1000mcg IM x1 now and start on vitamin b12 supplements All other medical conditions stable, continue home medications as appropriate. DVT Prophylaxis: teds/SCDs, avoid chemoprophylaxis with anemia Discharge Planning Discharge pending results of work up and hematology follow up. Peg Stone PA-C Feb 22, 2017 10:02 am
[2017-02-22 10:42] LABS: ALBUMIN SPE 3.75 GM/DL (3.50-5.00); ALPHA 1 GLOBULIN 0.22 GM/DL (0.11-0.29); ALPHA 2 GLOBULIN 1.11 GM/DL (0.22-1.00); BETA GLOBULINS (SPE) 0.82 GM/DL (0.53-1.03)
[2017-02-22] MEDS ORDERED: METOCLOPRAMIDE HCL 10 MG/2 ML VIAL IV PUSH ONE (16:00)
[2017-02-22] MEDS ORDERED: PROCHLORPERAZINE INJ 10 MG/2 ML VIAL IV PUSH ONE (16:00)
[2017-02-22] MEDS ORDERED: SUMAtriptan INJ 6 MG/0.5 ML VIAL SQ PRN (16:00)
[2017-02-22] MEDS ORDERED: ACETAMIN 325 MG/BUTALBITAL 50 MG/CAFFEINE 40 MG TAB PO PRN (18:00)
[2017-02-22] MEDS: ATORVASTATIN 20 MG TAB PO SCH (20:19)
[2017-02-22] MEDS: QUEtiapine FUMARATE 200 MG TAB PO SCH (20:19)
[2017-02-23 02:04] VITALS: BP 108/52; PULSE 82; RESP 18; TEMP 98.2; O2SAT 91
[2017-02-23 07:15] VITALS: PULSE 72
[2017-02-23 07:50] VITALS: BP 125/65; PULSE 89; RESP 18; TEMP 97.8; O2SAT 92
[2017-02-23] MEDS: SODIUM CHLORIDE 0.9% FLUSH 10 ML FLUSH IV FLUSH SCH (08:20)
[2017-02-23] MEDS: QUEtiapine FUMARATE 25 MG TAB PO SCH ×2 (08:21→11:28)
[2017-02-23] MEDS: oxyCODONE/ACETAMINOPHEN 5 MG/325 MG TAB PO PRN (08:21)
[2017-02-23] MEDS: LISINOPRIL 10 MG TAB PO SCH (08:22)
[2017-02-23] MEDS: SERTRALINE HCL 50 MG TAB PO SCH (08:22)
--- NOTE | 2017-02-23 10:27 | HHI.PR ---
Subjective Remarks Follow up on patient with anemia, headache and chest pain. Patient seen and examined. Patient denies any complaints of chest pain overnight. States she is feeling better. She did receive an Imitrex injection last night for worsening headache. She reports nearly lifelong hx of daily headaches since she was 18. She states her current headaches are similar to what she has had in the past. She usually uses Excedrin with good results at home although does occasionally rely on Percocet or Lortab for more severe headaches. She has not had any follow up for her headaches in several years. She denies any lightheadedness, dizziness or vision changes. She denies any N/V or abdominal pain. She denies any weakness or tingling. She denies any hematuria, dysuria, melena or hematochezia. Objective Vitals Vital Signs Date Time Temp Pulse Resp B/P (MAP) Pulse Ox O2 Delivery O2 Flow Rate FiO2 02/23/17 07:50 97.8 89 18 125/65 (85) 92 02/23/17 07:15 72 02/23/17 02:04 98.2 82 18 108/52 (70) 91 02/22/17 20:58 98.3 85 18 115/61 (79) 94 02/22/17 20:00 90 02/22/17 18:45 75 02/22/17 16:30 98.3 78 16 127/69 (88) 93 02/22/17 11:45 98.3 88 16 107/57 (74) 95 I/O 02/22/17 02/22/17 02/22/17 02/23/17 02/23/17 02/23/17 07:00 15:00 23:00 07:00 15:00 23:00 # Voids 1 Result Diagram: 02/22/17 0640 02/22/17 0640 Imaging Last Impressions Chest X-Ray 02/20/171948 Signed Impressions: Service Date/Time: Monday, February 20, 2017 20:16 - CONCLUSION: No acute disease. Eliazar Perales MD Objective Remarks GENERAL: Well-nourished, well-developed pleasant middle aged female patient in [facility]. Awake and alert. Appears comfortable. SKIN: Warm and dry. No rash. HEENT: Normocephalic. Atraumatic. EOMI. Mucous membranes pink and moist. CARDIOVASCULAR: Regular rate and rhythm. S1, S2 noted. No murmur appreciated. RESPIRATORY: Nonlabored. Clear to auscultation. Breath sounds equal bilaterally. GASTROINTESTINAL: Abdomen soft, non-tender, nondistended. Normoactive bowel sounds x4. MUSCULOSKELETAL: No obvious deformities. Extremities without clubbing, cyanosis , or edema. NEUROLOGICAL: Awake and alert. No obvious cranial nerve deficits. Motor grossly within normal limits. Normal speech. PSYCHIATRIC: Appropriate mood and affect; insight and judgment normal. Medications and IVs Current Medications Medications (Trade) Dose Ordered Sig/Beth Route Start Time Stop Time Status Last Admin (NS Flush) 2 ml BID IV FLUSH 02/21/17 09:00 02/23/17 08:20 (NS Flush) 2 ml UNSCH PRN IV FLUSH 02/20/17 23:30 (Tylenol) 500 mg Q4H PRN PO 02/20/17 23:30 02/21/17 20:39 (Lipitor) 20 mg HS PO 02/20/17 23:45 02/22/17 20:19 (Prinivil) 10 mg DAILY PO 02/21/17 09:00 02/23/17 08:22 (Ativan) 1 mg Q8H PRN PO 02/20/17 23:45 (SEROquel) 200 mg HS PO 02/20/17 23:45 02/22/17 20:19 (Zoloft) 25 mg DAILY PO 02/21/17 09:00 02/23/17 08:22 (SEROquel) 25 mg BID@09,12 PO 02/21/17 09:00 02/23/17 08:21 (Percocet 5-325 Mg) 1 tab Q6H PRN PO 02/21/17 14:00 02/23/17 08:21 (Fioricet 325-50-40) 1 tab Q8H PRN PO 02/22/17 18:00 (Imitrex Inj) 6 mg UNSCH PRN SQ 02/22/17 16:00 02/22/17 16:21 A/P Problem List: (1) Anemia ICD Code: D64.9 - Anemia, unspecified Status: Acute (2) Headache ICD Code: R51 - Headache Status: Acute (3) Atypical chest pain ICD Code: R07.89 - Other chest pain Status: Acute Assessment and Plan 61-year-old female with history of HTN, HLD, Depression, presents with headache and chest pain Severe Anemia: Hgb 6.9, Hct 21.0. Unclear etiology. Hemoccult negative in the ED on 02/20. CT abdomen/pelvis done 08/08/16 images reviewed and unremarkable. -1u pRBC transfused 02/21 -Iron studies with iron 61, TIBC 468, % sat 13, ferritin 6, B12 272, folate 19.2 -Repeat CBC following transfusion showed improvement with Hgb 8.7. Repeat lab pending for today. -Consulted hematology for further work up, appreciate recommendations -awaiting peripheral smear Headache: chronic. Pain temporarily relieved by percocet in the ED. -Continue with tylenol and percocet prn pain -Monitor for improvement -s/p Imitrex last night for headache with good response -CT cervical spine 02/19 showed small central bulge at C34, images reviewed by me -CT head 02/19 showed normal exam, images reviewed by me -Recommended to patient she follow up with Neurologist as outpatient for further evaluation/treatment of chronic headaches. Chest Pain: also suspect secondary to anemia. Cardiac catheterization 01/08/[address] Guaman showed mild to moderate nonobstructive coronary disease at proximal circumflex with 50% stenosis; 10-20% stenoses in LAD and right coronary ; EF 65-70%; likely non cardiac chest pain. Nuclear stress test 04/18/16 showed no reversible perfusion defects; no ischemia. -ACS ruled out with negative serial cardiac enzymes x3 and EKG without acute ischemic changes. -Continue patient's statin, lisinopril, held aspirin for now with anemia -Monitor on telemetry -symptoms resolved following transfusion. No recurrence. HTN/HLD: chronic, stable -continue patient's lisinopril and statin -monitor BP, adjust antihypertensives as needed Vitamin B12 Deficiency: b12 borderline low -with anemia, will give cyanocobalamin 1000mcg IM x1 now and start on vitamin b12 supplements All other medical conditions stable, continue home medications as appropriate. DVT Prophylaxis: teds/SCDs, avoid chemoprophylaxis with anemia Damaris Trejo Feb 23, 2017 10:27
[2017-02-23] MEDS ORDERED: CYANOCOBALAMIN 100 MCG TAB PO SCH (10:30)
[2017-02-23 11:45] LABS: AUTOMATED NEUTROPHIL # 6.4 TH/MM3 (1.8-7.7); BASOPHIL # 0.1 TH/MM3 (0-0.2); BASOPHIL % 1.1 % (0.0-2.0); EOSINOPHIL # 0.4 TH/MM3 (0-0.4); HEMATOCRIT 25.6 % (35.0-46.0); HEMO FLAGS DIFF FINAL; LYMPH % 20.1 % (9.0-44.0); LYMPHOCYTE # 1.9 TH/MM3 (1.0-4.8); MEAN CELL VOLUME 85.7 FL (80.0-100.0); MEAN CORPUSCULAR HEMOGLOBIN 29.3 PG (27.0-34.0); MEAN CORPUSCULAR HGB CONC 34.2 % (32.0-36.0); MONO % 7.4 % (0.0-8.0); NEUT % 67.4 % (16.0-70.0); PLATELET COUNT 230 TH/MM3 (150-450); RED BLOOD COUNT 2.99 MIL/MM3 (4.00-5.30); RED CELL DISTRIBUTION WIDTH 16.1 % (11.6-17.2); WHITE BLOOD COUNT 9.4 TH/MM3 (4.0-11.0)
[2017-02-23 12:20] VITALS: BP 111/61; PULSE 86; RESP 16; TEMP 98.1; O2SAT 97
[2017-02-23] MEDS ORDERED: B-12100T PO (12:48)
[2017-02-23] MEDS ORDERED: VITA500T2 PO (12:48)
[2017-02-23] MEDS ORDERED: FERR325T20 PO (12:48)
--- NOTE | 2017-02-23 12:50 | HHI.DCPOC ---
Discharge Care Plan Diagnosis: (1) Acute kidney injury (2) Iron deficiency anemia (3) Anemia (4) Chronic headaches (5) Hypertension Goals to Promote Your Health * To prevent worsening of your condition and complications * To maintain your health at the optimal level Directions to Meet Your Goals Please stop smoking. Advise against use of nonsteroidal anti-inflammatory medications such as Advil, Ibuprofen, Excedrin, etc. Take your medications as prescribed Follow your dietary instruction Follow activity as directed Keep your appointments as scheduled Take your immunizations and boosters as scheduled If your symptoms worsen call your PCP, if no PCP go to Urgent Care Center or Emergency Room Smoking is Dangerous to Your Health. Avoid second hand smoke Call the 24-hour hour crisis hotline for domestic abuse at Damaris Trejo Feb 23, 2017 12:50
--- NOTE | 2017-02-23 12:53 | HHI.DS ---
Discharge Summary Admission Date Feb 20, 2017 at 23:12 Discharge Date: Feb 23, 2017 Admitting Diagnosis anemia (1) Anemia ICD Code: D64.9 - Anemia, unspecified Status: Acute (2) Headache ICD Code: R51 - Headache Status: Acute (3) Atypical chest pain ICD Code: R07.89 - Other chest pain Status: Acute (4) Acute kidney injury ICD Code: N17.9 - Acute kidney failure, unspecified (5) Hypertension ICD Code: I10 - Hypertension Status: Chronic Procedures None Brief History - From Admission 61-year-old female presents to the emergency department for the second night complaining of chest pain and severe headache. The patient was found to have an H&H of 7.8/23.6 which is stable from yesterday where she was 7.6/22.9. The patient was admitted to observation yesterday for anemia workup however left AMA. In October, the patient's H&H was 11.0/33.3. She denies any melena. Was Hemoccult negative yesterday in the emergency department. Additionally, the patient complains of chest pain that she describes as a pressure that is intermittent and radiates down her bilateral upper extremities. She also endorses shortness of breath and a severe headache with accompanying back pain. CBC/BMP: 02/23/17 1135 02/22/17 0640 Significant Findings Laboratory Tests Test 02/20/17 20:15 02/21/17 01:09 02/21/17 16:42 02/22/17 06:40 Red Blood Count 2.72 MIL/MM3 (4.00-5.30) 2.42 MIL/MM3 (4.00-5.30) 3.02 MIL/MM3 (4.00-5.30) Hemoglobin 7.8 GM/DL (11.6-15.3) 6.9 GM/DL (11.6-15.3) 8.7 GM/DL (11.6-15.3) Hematocrit 23.6 % (35.0-46.0) 21.0 % (35.0-46.0) 25.9 % (35.0-46.0) Eosinophils (%) (Auto) 5.4 % (0.0-4.0) 6.0 % (0.0-4.0) 4.9 % (0.0-4.0) Eosinophils # (Auto) 0.5 TH/MM3 (0-0.4) Creatinine 1.20 MG/DL (0.50-1.00) 1.16 MG/DL (0.50-1.00) 1.05 MG/DL (0.50-1.00) Estimat Glomerular Filtration Rate 46 ML/MIN (>89) 48 ML/MIN (>89) 54 ML/MIN (>89) Total Iron Binding Capacity 519 MCG/DL (250-450) 468 MCG/DL (250-450) Percent Iron Saturation 14.4 % (20-50) 13.0 % (20-50) Total Creatine Kinase 338 U/L (26-192) 272 U/L (26-192) 378 U/L (26-192) Troponin I LESS THAN 0.02 NG/ML LESS THAN 0.02 NG/ML LESS THAN 0.02 NG/ML Monocytes (%) (Auto) 9.1 % (0.0-8.0) Reticulocyte Count 3.4 % (0.4-3.0) Chloride Level 110 MEQ/L (98-107) Ferritin 6 NG/ML (8-252) Albumin/Globulin Ratio 1.27 (1.39-2.23) Qdwqi-9-[id number] 1.11 GM/DL (0.22-1.00) Folate 19.2 NG/ML (3.1-17.5) Free Thyroxine 0.60 NG/DL (0.76-1.46) Test 02/23/17 11:35 Red Blood Count 2.99 MIL/MM3 (4.00-5.30) Hemoglobin 8.8 GM/DL (11.6-15.3) Hematocrit 25.6 % (35.0-46.0) Imaging Last Impressions Chest X-Ray 02/20/171948 Signed Impressions: Service Date/Time: Monday, February 20, 2017 20:16 - CONCLUSION: No acute disease. Eliazar Perales MD PE at Discharge GENERAL: Well-nourished, well-developed pleasant middle aged female patient in [facility]. Awake and alert. Appears comfortable. SKIN: Warm and dry. No rash. HEENT: Normocephalic. Atraumatic. EOMI. Mucous membranes pink and moist. CARDIOVASCULAR: Regular rate and rhythm. S1, S2 noted. No murmur appreciated. RESPIRATORY: Nonlabored. Clear to auscultation. Breath sounds equal bilaterally. GASTROINTESTINAL: Abdomen soft, non-tender, nondistended. Normoactive bowel sounds x4. MUSCULOSKELETAL: No obvious deformities. Extremities without clubbing, cyanosis , or edema. NEUROLOGICAL: Awake and alert. No obvious cranial nerve deficits. Motor grossly within normal limits. Normal speech. PSYCHIATRIC: Appropriate mood and affect; insight and judgment normal. Pt update on day of discharge Follow up on patient with anemia, headache and chest pain. Patient seen and examined. Patient denies any complaints of chest pain overnight. States she is feeling better. She did receive an Imitrex injection last night for worsening headache. She reports nearly lifelong hx of daily headaches since she was 18. She states her current headaches are similar to what she has had in the past. She usually uses Excedrin with good results at home although does occasionally rely on Percocet or Lortab for more severe headaches. She has not had any follow up for her headaches in several years. She denies any lightheadedness, dizziness or vision changes. She denies any N/V or abdominal pain. She denies any weakness or tingling. She denies any hematuria, dysuria, melena or hematochezia. Hospital Course 61-year-old female with history of HTN, HLD, Depression, presents with headache and chest pain Severe Anemia: Hgb 6.9, Hct 21.0. Unclear etiology. Hemoccult negative in the ED on 02/20. CT abdomen/pelvis done 08/08/16 images reviewed and unremarkable. -1u pRBC transfused 02/21 -Iron studies with iron 61, TIBC 468, % sat 13, ferritin 6, B12 272, folate 19.2.. Started on iron po supplementation with vitamin C. -Repeat CBC following transfusion showed improvement with Hgb 8.7. H/H stable. -Consulted hematology for further work up, appreciate recommendations -awaiting peripheral smear - follow up with hematology as outpatient Headache: chronic. Pain temporarily relieved by percocet in the ED. -Continue with tylenol and percocet prn pain -Monitor for improvement -s/p Imitrex last night for headache with good response -CT cervical spine 02/19 showed small central bulge at C34, images reviewed by me -CT head 02/19 showed normal exam, images reviewed by me -Recommended to patient she follow up with Neurologist as outpatient for further evaluation/treatment of chronic headaches. Chest Pain: also suspect secondary to anemia. Cardiac catheterization 01/08/[address] Guaman showed mild to moderate nonobstructive coronary disease at proximal circumflex with 50% stenosis; 10-20% stenoses in LAD and right coronary ; EF 65-70%; likely non cardiac chest pain. Nuclear stress test 04/18/16 showed no reversible perfusion defects; no ischemia. -ACS ruled out with negative serial cardiac enzymes x3 and EKG without acute ischemic changes. -Continue patient's statin, lisinopril, held aspirin for now with anemia -Monitor on telemetry -symptoms resolved following transfusion. No recurrence. YOVANI on CKD stage III -creatinine appears to have returned to baseline -encourage po fluids -avoid nephrotoxic agents HTN/HLD: chronic, stable -continue patient's lisinopril and statin -monitor BP, adjust antihypertensives as needed Vitamin B12 Deficiency: b12 borderline low -with anemia, will give cyanocobalamin 1000mcg IM x1 now and start on vitamin b12 supplements All other medical conditions stable, continue home medications as appropriate. DVT Prophylaxis: teds/SCDs, avoid chemoprophylaxis with anemia Pt Condition on Discharge: Stable Discharge Disposition: Discharge Home Discharge Time: > 30 minutes Discharge Instructions DIET: Follow Instructions for: Heart Healthy Diet Activities you can perform: Regular-No Restrictions Follow up Referrals: Gastroenterology - 1 Week Neurology - 1 Week Oncology/Hematology - 1 Week with Mattie Gallo MD PCP Follow-up - 1 Week New Medications: Ascorbic Acid (C 500/Lynette Hips) 500 Mg Tab 500 MG PO BID for Nutritional Supplement for 30 Days, #60 TAB Cyanocobalamin (B-12) 100 Mcg Tab 100 MCG PO DAILY for Nutritional Supplement for 30 Days, #30 TAB Ferrous Sulfate (Ferosul) 325 Mg (65 Mg Iron) Tablet 325 MG PO BID for ANEMIA for 30 Days, #60 TAB Continued Medications: Aspirin (Aspirin) 81 Mg Chew 81 MG CHEW DAILY, TAB 0 Refills Atorvastatin (Atorvastatin) 20 Mg Tab 20 MG PO HS for Cholesterol Management, #90 TAB 4 Refills Lisinopril (Lisinopril) 10 Mg Tab 10 MG PO DAILY, #60 TAB 6 Refills Lorazepam (Ativan) 1 Mg Tab 1 MG PO 2-3 daily PRN for ANXIETY AND/OR AGITATION, #90 TAB 2 Refills Quetiapine (Seroquel) 200 Mg Tab 200 MG PO HS for mental health, #30 TAB 2 Refills Quetiapine (Seroquel) 25 Mg Tab 25 MG PO BID for mental health, #60 TAB 2 Refills Sertraline (Zoloft) 25 Mg Tab 25 MG PO DAILY for mental health, #30 TAB 2 Refills Damaris Trejo Feb 23, 2017 12:53
[2017-02-23] MEDS ORDERED: PROT40TA PO (13:01)
[2017-02-23] MEDS: ACETAMINOPHEN 500 MG CPLT PO PRN (13:29)
[2017-02-23] MEDS ORDERED: CYAN1TAB24 PO (13:49)
[2017-02-23] MEDS ORDERED: ASCORBIC ACID 500 MG TAB PO SCH (21:00)
[2017-02-23] MEDS ORDERED: FERROUS SULFATE 325 MG (65 MG ELEMENTAL IRON) TAB PO SCH (21:00)
== END 2017-02-23 16:10 | disposition home or self-care (01) ==
LOC: NEPC 18:21 → NEDA 23:12 → NEPFCDU 02-21 00:24
PROVIDERS: ADMIT Hospitalist; ATTEND Hospitalist
DX: N17.9 Acute kidney failure, unspecified (principal); D50.9 Iron deficiency anemia, unspecified; R07.89 Other chest pain; R51 Headache; I12.9 Hypertensive chronic kidney disease with stage 1 through stage 4 chronic kidney disease, or unspecified chronic kidney disease; N18.3 Chronic kidney disease, stage 3 (moderate); E78.00 Pure hypercholesterolemia, unspecified; E53.8 Deficiency of other specified B group vitamins; B19.20 Unspecified viral hepatitis C without hepatic coma; Z98.1 Arthrodesis status; Z23 Encounter for immunization; R06.02 Shortness of breath; M54.9 Dorsalgia, unspecified; Z87.891 Personal history of nicotine dependence
CPT/HCPCS: 36430; 71010; 80048; 82550; 82552; 82607; 82728; 82746; 83010; 83540; 83550; 83615; 84165; 84439; 84443; 84484; 85025; 85044; 85060; 85610; 85730; 86850; 86900; 86901; 86920; 90732; 93005; 96361; 96372; 96374; 96375; 96376; 99285; G0008; G0009; G0378; J0780; J1885; J2270; J2765; J3030; J3420; J7050; P9016; Q2038; 90471; 90472; 90686

== ENCOUNTER 2017-02-25 15:41 | Emergency (ER) | payer OTHER, MEDICAID ==
[~2017-02-25 15:41] MED LIST changes: +CYAN1TAB24 PO; +FERR325T20 PO; +PROT40TA PO; +VITA500T2 PO
[2017-02-25 15:42] VITALS: BP 134/63; PULSE 94; RESP 14; TEMP 98.6; O2SAT 99
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
[2017-02-25] MEDS ORDERED: PROCHLORPERAZINE INJ 10 MG/2 ML VIAL IV PUSH ONE (19:00)
[2017-02-25] MEDS ORDERED: KETOROLAC TROMETHAMINE 30 MG/ML (IVP) VIAL IV PUSH ONE (19:00)
--- NOTE | 2017-02-25 19:06 | RADRPT ---
EXAM DATE/TIME: 02/25/2017 18:52 [facility] COMPARISON: CHEST SINGLE AP, February 20, 2017, 20:16. INDICATIONS : Chest pain MEDICAL HISTORY : Hypertension. Hepatitis C SURGICAL HISTORY : Fusion, lumbar. heart catheterization tubal ligation ENCOUNTER: Initial ACUITY: 2 days PAIN SCORE: 10/10 LOCATION: chest FINDINGS: A single view of the chest demonstrates the lungs to be symmetrically aerated without evidence of mas s, infiltrate or effusion. The cardiomediastinal contours are unremarkable. Osseous structures are intact. CONCLUSION: No acute disease. Hi Kinsey Jr., MD on February 25, 2017 at 19:04 Board Certified Radiologist. This report was verified electronically.
[2017-02-25 19:21] VITALS: BP 136/78; PULSE 72; RESP 16; O2SAT 99
[2017-02-25 20:58] LABS: AUTOMATED NEUTROPHIL # 4.8 TH/MM3 (1.8-7.7); BASOPHIL # 0.1 TH/MM3 (0-0.2); BASOPHIL % 1.1 % (0.0-2.0); EOSINOPHIL # 0.7 TH/MM3 (0-0.4); EOSINOPHIL % 7.5 % (0.0-4.0); HEMO FLAGS DIFF FINAL; MEAN CELL VOLUME 86.6 FL (80.0-100.0); MEAN CORPUSCULAR HEMOGLOBIN 28.6 PG (27.0-34.0); MONO % 8.3 % (0.0-8.0); NEUT % 51.1 % (16.0-70.0); PLATELET COUNT 294 TH/MM3 (150-450); RED BLOOD COUNT 3.35 MIL/MM3 (4.00-5.30); RED CELL DISTRIBUTION WIDTH 16.1 % (11.6-17.2); WHITE BLOOD COUNT 9.3 TH/MM3 (4.0-11.0)
[2017-02-25] MEDS ORDERED: TYLE325T PO (20:59)
[2017-02-25 21:15] LABS: ANION GAP 9 MEQ/L (5-15); BICARBONATE 25.3 MEQ/L (21.0-32.0); BLOOD UREA NITROGEN 12 MG/DL (7-18); CHLORIDE 105 MEQ/L (98-107); GLOMERULAR FILTRATION RATE 50 ML/MIN (>89); MAGNESIUM 2.5 MG/DL (1.5-2.5); POTASSIUM 4.1 MEQ/L (3.5-5.1); SODIUM (NA) 139 MEQ/L (136-145)
[2017-02-25 21:16] LABS: APTT (PATIENT) 29.6 SEC (24.3-30.1); INTERNATIONAL NORMALIZED RATIO 0.9 RATIO; PROTHROMBIN TIME - PATIENT 9.9 SEC (9.8-11.6)
--- NOTE | 2017-02-26 18:14 | EKG ---
Date Performed: 02/25/2017 Time Performed: 19:13:30 PTAGE: 61 years EKG: Sinus rhythm NORMAL ECG PREVIOUS TRACING : 02/21/2017 09.03 DOCTOR: Aliyah Piedra Interpretating Date/Time 02/26/2017 18:10:46
== END 2017-02-25 21:14 | disposition left against medical advice (07) ==
LOC: NEPD 15:41
DX: R51 Headache (principal); R07.89 Other chest pain; I10 Essential (primary) hypertension; D64.9 Anemia, unspecified; E78.5 Hyperlipidemia, unspecified; F41.9 Anxiety disorder, unspecified; F32.9 Major depressive disorder, single episode, unspecified; M19.90 Unspecified osteoarthritis, unspecified site; B19.20 Unspecified viral hepatitis C without hepatic coma
CPT/HCPCS: 71010; 80048; 83690; 83735; 84484; 85025; 85610; 85730; 93005; 96374; 96375; 99285; J0780; J1885

== ENCOUNTER 2017-05-03 12:27 | Emergency (ER) | payer OTHER, MEDICAID ==
[~2017-05-03] VITALS: Ht 170.2 cm; Wt 88.6 kg
[~2017-05-03 12:27] MED LIST changes: +TYLE325T PO
[2017-05-03 12:29] VITALS: BP 153/70; PULSE 90; RESP 18; TEMP 98; O2SAT 97
[2017-05-03 13:07] LABS: AUTOMATED NEUTROPHIL # 5.5 TH/MM3 (1.8-7.7); BASOPHIL # 0.1 TH/MM3 (0-0.2); EOSINOPHIL # 0.6 TH/MM3 (0-0.4); EOSINOPHIL % 6.7 % (0.0-4.0); HEMATOCRIT 32.2 % (35.0-46.0); LYMPH % 23.5 % (9.0-44.0); LYMPHOCYTE # 2.2 TH/MM3 (1.0-4.8); MEAN CELL VOLUME 89.6 FL (80.0-100.0); MEAN CORPUSCULAR HEMOGLOBIN 30.8 PG (27.0-34.0); MEAN CORPUSCULAR HGB CONC 34.3 % (32.0-36.0); MEAN PLATELET VOLUME 8.1 FL (7.0-11.0); MONO % 9.3 % (0.0-8.0); MONOCYTE # 0.9 TH/MM3 (0-0.9); NEUT % 59.5 % (16.0-70.0); PLATELET COUNT 254 TH/MM3 (150-450); RED BLOOD COUNT 3.59 MIL/MM3 (4.00-5.30); RED CELL DISTRIBUTION WIDTH 17.6 % (11.6-17.2); WHITE BLOOD COUNT 9.2 TH/MM3 (4.0-11.0)
[2017-05-03 13:10] LABS: BILIRUBIN, URINE NEG (NEG); BLOOD, URINE TRACE (NEG); GLUCOSE,URINE NEG (NEG); KETONE, URINE NEG (NEG); NITRITE,URINE NEG (NEG); PH, URINE 6.5 (5.0-8.5); SQUAMOUS EPITHELIAL CELL URINE <1 /hpf (0-5); URINE COLOR YELLOW (YELLW/STRAW); URINE LEUKOCYTE ESTERASE SMALL (NEG)
[2017-05-03 13:25] LABS: ALBUMIN 3.3 GM/DL (3.4-5.0); AST (GOT) 19 U/L (15-37); BICARBONATE 22.6 MEQ/L (21.0-32.0); BLOOD UREA NITROGEN 8 MG/DL (7-18); CALCIUM 8.5 MG/DL (8.5-10.1); CHLORIDE 110 MEQ/L (98-107); CREATININE 0.97 MG/DL (0.50-1.00); GLOMERULAR FILTRATION RATE 59 ML/MIN (>89); GLUCOSE,RANDOM 104 MG/DL (74-106); LIPASE 134 U/L (73-393); SODIUM (NA) 142 MEQ/L (136-145)
[2017-05-03 13:29] LABS: ALKALINE PHOSPHATASE 105 U/L (45-117); ALT (GPT) 24 U/L (10-53); TOTAL BILIRUBIN ADULT 0.2 MG/DL (0.2-1.0); TOTAL PROTEIN 7.6 GM/DL (6.4-8.2)
[2017-05-03] MEDS ORDERED: OMEP20TA93 PO (13:54)
[2017-05-03] MEDS ORDERED: DICY10 PO (13:54)
--- NOTE | 2017-05-03 13:54 | PD ---
HPI Chief Complaint: Abdominal Pain Time Seen by Provider: 13:38 Travel History International Travel<30 days: No Contact w/Intl Traveler<30days: No Traveled to known affect area: No History of Present Illness HPI This is a 61-year-old female who presents to the emergency department with abdominal pain that's been going on for 6 months. She says she feels cramping that starts in the epigastric area and radiates down into her right lower abdomen, intermittent, moderate severity with no associated vomiting, fevers or chills and no diarrhea. She's had this pain before in the past. She had a colonoscopy 2 years ago which was normal. She says she had an ultrasound at [facility] recently ordered by her primary care physician which she thinks was normal. She's been trying to get a referral to gastroenterology but she says her primary care doctor keeps letting the referral fall through. She just feels frustrated and she doesn't know what to do. The pain has not changed. 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) GERD: No Genitourinary: No Hepatitis: Yes (HEP C TX IN 1988) Hiatal Hernia: No Heparin Induced Thrombocytopen: No Hypertension: Yes Immune Disorder: No Implanted Vascular Access Dvce: Yes Musculoskeletal: Yes (HX OF SPINAL ABCESS,DEGENERATIIVE JOINT DISEASE) Neurologic: Yes (neuropathy) Psychiatric: Yes Reproductive: No Respiratory: No Immunizations Current: No Radiation Therapy: No Sickle Cell Disease: No Sleep Apnea: No Thyroid Disease: No Ulcer: No Menopausal: Yes Tubal Ligation: Yes (1990) Past Surgical History Abdominal Surgery: Yes ( LAP CHOLY AND LIVER BX) Body Medical Devices: HARDWARE IN LUMBAR SPINE Cholecystectomy: Yes Coronary Artery Bypass Graft: No Ear Surgery: No Endocrine Surgery: No Eye Surgery: No Genitourinary Surgery: No Gynecologic Surgery: Yes (bilateral tubal ligation ) Neurologic Surgery: No Oral Surgery: No Other Surgery: Yes (spinal cage fusion l4 l5 1996; liver biopsy 2014gallbladder ) Social History Alcohol Use: No (PT DENIES) Tobacco Use: No (<ppd) Substance Use: No Allergies-Medications (Allergen,Severity, Reaction): Coded Allergies: cyclobenzaprine (Unverified Allergy, Severe, Restlessness, 02/25/17) Reported Meds & Prescriptions Reported Meds & Active Scripts Active Omeprazole 20 Mg Tab 20 Mg PO DAILY Bentyl (Dicyclomine HCl) 10 Mg Cap 10 Mg PO TID PRN Tylenol (Acetaminophen) 325 Mg Tab 650 Mg PO Q6H PRN B12 (Cyanocobalamin) 1,000 Mcg Tab 1,000 Mcg PO DAILY 30 Days Protonix (Pantoprazole Sodium) 40 Mg Tab 40 Mg PO DAILY C 500/Lynette Hips (Ascorbic Acid) 500 Mg Tab 500 Mg PO BID 30 Days Ferosul (Ferrous Sulfate) 325 Mg (65 Mg Iron) Tablet 325 Mg PO BID 30 Days Atorvastatin (Atorvastatin Calcium) 20 Mg Tab 20 Mg PO HS Lisinopril 10 Mg Tab 10 Mg PO DAILY Ativan (Lorazepam) 1 Mg Tab 1 Mg PO 2-3 DAILY PRN Zoloft (Sertraline HCl) 25 Mg Tab 25 Mg PO DAILY Seroquel (Quetiapine Fumarate) 25 Mg Tab 25 Mg PO BID Seroquel (Quetiapine Fumarate) 200 Mg Tab 200 Mg PO HS Reported Aspirin 81 Mg Chew 81 Mg CHEW DAILY Review of Systems Except as stated in HPI: all other systems reviewed are Neg Physical Exam Narrative GENERAL:Well appearing, no acute distress SKIN: Focused skin assessment warm and dry. HEAD: Atraumatic. Normocephalic. EYES: Pupils equal and round. No injection or drainage. ENT: Moist mucous membranes NECK: Trachea midline. CARDIOVASCULAR: Regular rate and rhythm. No murmur appreciated. RESPIRATORY: Clear to auscultation. Breath sounds equal bilaterally. GASTROINTESTINAL: Abdomen soft, mildly tender to palpation in the epigastrium and right lower quadrant with no rebound or guarding. MUSCULOSKELETAL: No obvious deformities. NEUROLOGICAL: Awake and alert. No obvious cranial nerve deficits. Moving all extremities. PSYCHIATRIC: Appropriate mood and affect; insight and judgment normal. Data Data Last Documented VS Vital Signs Date Time Temp Pulse Resp B/P (MAP) Pulse Ox O2 Delivery O2 Flow Rate FiO2 05/03/17 12:29 98.0 90 18 153/70 (97) 97 Orders Orders Complete Blood Count With Diff (05/03/17 12:41) Comprehensive Metabolic Panel (05/03/17 12:41) Lipase (05/03/17 12:41) Urinalysis - C+S If Indicated (05/03/17 12:41) Ed Discharge Order (05/03/17 13:54) Labs Laboratory Tests Test 05/03/17 12:50 White Blood Count 9.2 TH/MM3 Red Blood Count 3.59 MIL/MM3 Hemoglobin 11.0 GM/DL Hematocrit 32.2 % Mean Corpuscular Volume 89.6 FL Mean Corpuscular Hemoglobin 30.8 PG Mean Corpuscular Hemoglobin Concent 34.3 % Red Cell Distribution Width 17.6 % Platelet Count 254 TH/MM3 Mean Platelet Volume 8.1 FL Neutrophils (%) (Auto) 59.5 % Lymphocytes (%) (Auto) 23.5 % Monocytes (%) (Auto) 9.3 % Eosinophils (%) (Auto) 6.7 % Basophils (%) (Auto) 1.0 % Neutrophils # (Auto) 5.5 TH/MM3 Lymphocytes # (Auto) 2.2 TH/MM3 Monocytes # (Auto) 0.9 TH/MM3 Eosinophils # (Auto) 0.6 TH/MM3 Basophils # (Auto) 0.1 TH/MM3 CBC Comment DIFF FINAL Differential Comment Urine Color YELLOW Urine Turbidity CLEAR Urine pH 6.5 Urine Specific [place] 1.013 Urine Protein TRACE mg/dL Urine Glucose (UA) NEG mg/dL Urine Ketones NEG mg/dL Urine Occult Blood TRACE Urine Nitrite NEG Urine Bilirubin NEG Urine Urobilinogen LESS THAN 2.0 MG/DL Urine Leukocyte Esterase SMALL Urine RBC 3 /hpf Urine WBC 1 /hpf Urine Squamous Epithelial Cells <1 /hpf Microscopic Urinalysis Comment CULT NOT INDICATED Blood Urea Nitrogen 8 MG/DL Creatinine 0.97 MG/DL Random Glucose 104 MG/DL Total Protein 7.6 GM/DL Albumin 3.3 GM/DL Calcium Level 8.5 MG/DL Alkaline Phosphatase 105 U/L Aspartate Amino Transf (AST/SGOT) 19 U/L Alanine Aminotransferase (ALT/SGPT) 24 U/L Total Bilirubin 0.2 MG/DL Sodium Level 142 MEQ/L Potassium Level 3.0 MEQ/L Chloride Level 110 MEQ/L Carbon Dioxide Level 22.6 MEQ/L Anion Gap 9 MEQ/L Estimat Glomerular Filtration Rate 59 ML/MIN Lipase 134 U/L [facility] Medical Decision Making Medical Screen Exam Complete: Yes Emergency Medical Condition: Yes Interpretation(s) Afebrile, no tachycardia, hypertensive Mild anemia Mild hypokalemia Lipase is 134 Urinalysis demonstrates no infection Differential Diagnosis Appendicitis, ovarian torsion, ovarian cyst, irritable bowel syndrome, inflammatory bowel disease Narrative Course This is a 61-year-old female who presents to the emergency department with right sided abdominal pain that's been going on for over 6 months. Her pain is all chronic in nature. On review of ER charts in the past she's been here multiple times for similar complaints and has had multiple CT scans which have been unrevealing. Here labs are obtained which were reassuring and urinalysis is negative for infection. I think she would benefit most from outpatient follow-up. She was referred to [facility] because she feels like her primary care physician is unresponsive and she was initiated on a PPI and Bentyl. Patient will be discharged home. Diagnosis Primary Impression: Abdominal pain Qualified Codes: R10.84 - Generalized abdominal pain Referrals: [facility] Patient Instructions: General Instructions Additional Instructions: If you develop severe or worsening abdominal pain, fever>100.4, persistent vomiting or inability to eat or drink return to the emergency department immediately. Follow up with your primary care physician in 1-2 days for a check-up. Med/Other Pt SpecificInfo: Prescription(s) given Scripts Omeprazole (Omeprazole) 20 Mg Tab 20 MG PO DAILY, #30 TAB 0 Refills Prov: Gerri Chávez MD 05/03/17 Dicyclomine (Bentyl) 10 Mg Cap 10 MG PO TID Y for Bowel Management, #15 CAP 0 Refills Prov: Gerri Chávez MD 05/03/17 Disposition: 01 DISCHARGE HOME Condition: Stable Gerri Chávez MD May 03, 2017 13:54
== END 2017-05-03 14:34 | disposition home or self-care (01) ==
LOC: NEPD 12:27
DX: R10.84 Generalized abdominal pain (principal); D64.9 Anemia, unspecified; E87.6 Hypokalemia; I10 Essential (primary) hypertension; E78.00 Pure hypercholesterolemia, unspecified; F41.8 Other specified anxiety disorders
CPT/HCPCS: 80053; 81001; 83690; 85025; 99284

== ENCOUNTER 2017-10-04 20:55 | Emergency (ER) | payer OTHER, MEDICAID ==
[~2017-10-04] VITALS: Ht 170.2 cm; Wt 85.0 kg
[~2017-10-04 20:55] MED LIST changes: +DICY10 PO; +OMEP20TA93 PO
[2017-10-04 21:20] VITALS: BP 137/61; PULSE 71; RESP 16; TEMP 98.2; O2SAT 99
--- NOTE | 2017-10-05 00:34 | RADRPT ---
EXAM DATE: 10/05/2017 12:30 AM EDT AGE/SEX: 62 years / Female INDICATIONS: Trauma; fall. CLINICAL DATA: This is the patient's initial encounter. Patient reports that signs and symptoms have been present for 1 day and indicates a pain score of 5/10. MEDICAL/SURGICAL HISTORY: Cardiovascular disease. Hypertension. Hepatitis C. Fusion, lumbar. RADIATION DOSE: 51.15 CTDI (mGy) [place] [facility] [place]19/[place]. . TECHNIQUE: CT of the head without contrast. Using automated exposure control and adjustment of the mA and/or kV according to patient size, radiation dose was kept as low as reasonably achievable to ob tain optimal diagnostic quality images. DICOM format image data is available electronically for revi ew and comparison. FINDINGS: Cerebrum: The ventricles are normal for age. No evidence of midline shift, mass lesion, hemorrhage or acute infarction. No extraaxial fluid collections are seen. Posterior Fossa: The cerebellum and brainstem are intact. The 4th ventricle is midline. The cerebe llopontine angle is unremarkable. Extracranial: The visualized portion of the orbits is intact. Skull: The calvaria is intact. No evidence of skull fracture. CONCLUSION: 1. Negative CT Head non contrast. Electronically signed by: Mark Mac MD 10/05/2017 12:33 AM EDT
--- NOTE | 2017-10-05 00:36 | RADRPT ---
EXAM DATE: 10/05/2017 12:31 AM EDT AGE/SEX: 62 years / Female INDICATIONS: Trauma; fall. CLINICAL DATA: This is the patient's initial encounter. Patient reports that signs and symptoms have been present for 1 day and indicates a pain score of 4/10. MEDICAL/SURGICAL HISTORY: Cardiovascular disease. Hypertension. Hepatitis C. Fusion, lumbar. RADIATION DOSE: 15.12 CTDI (mGy) COMPARISON: No prior exams available for comparison. TECHNIQUE: Contiguous axial images were obtained using helical multirow detector technique. The vol umetric data was post-processed with multiplanar reconstruction in oblique axial, sagittal, and coron al planes. Using automated exposure control and adjustment of the mA and/or kV according to patient s ize, radiation dose was kept as low as reasonably achievable to obtain optimal diagnostic quality gerald ges. DICOM format image data is available electronically for review and comparison. FINDINGS: Vertebrae: Normal vertebral body height. Alignment: Normal. No subluxation. C2-3: The bony spinal canal is normal in size. No evidence of disc bulge or herniation. The neural foramina are bilaterally patent. C3-4: The bony spinal canal is normal in size. No evidence of disc bulge or herniation. The neural foramina are bilaterally patent. C4-5: The bony spinal canal is normal in size. No evidence of disc bulge or herniation. The neural foramina are bilaterally patent. C5-6: The bony spinal canal is normal in size. No evidence of disc bulge or herniation. The neural foramina are bilaterally patent. C6-7: The bony spinal canal is normal in size. No evidence of disc bulge or herniation. The neural foramina are bilaterally patent. C7-T1: The bony spinal canal is normal in size. No evidence of disc bulge or herniation. The neura l foramina are bilaterally patent. CONCLUSION: 1. Negative CT Cervical Spine non contrast. Electronically signed by: Mark Mac MD 10/05/2017 12:35 AM EDT
[2017-10-05 00:47] LABS: AUTOMATED NEUTROPHIL # 4.2 TH/MM3 (1.8-7.7); BASOPHIL # 0.1 TH/MM3 (0-0.2); BASOPHIL % 0.9 % (0.0-2.0); EOSINOPHIL # 0.3 TH/MM3 (0-0.4); EOSINOPHIL % 3.6 % (0.0-4.0); HEMATOCRIT 32.4 % (35.0-46.0); HEMOGLOBIN 11.3 GM/DL (11.6-15.3); LYMPH % 37.9 % (9.0-44.0); LYMPHOCYTE # 3.1 TH/MM3 (1.0-4.8); MEAN CELL VOLUME 90.4 FL (80.0-100.0); MEAN CORPUSCULAR HEMOGLOBIN 31.4 PG (27.0-34.0); MEAN CORPUSCULAR HGB CONC 34.7 % (32.0-36.0); MEAN PLATELET VOLUME 8.1 FL (7.0-11.0); MONO % 6.7 % (0.0-8.0); MONOCYTE # 0.6 TH/MM3 (0-0.9); NEUT % 50.9 % (16.0-70.0); PLATELET COUNT 210 TH/MM3 (150-450); RED BLOOD COUNT 3.58 MIL/MM3 (4.00-5.30); RED CELL DISTRIBUTION WIDTH 15.4 % (11.6-17.2); WHITE BLOOD COUNT 8.2 TH/MM3 (4.0-11.0)
--- NOTE | 2017-10-05 00:48 | RADRPT ---
EXAM DATE: 10/05/2017 12:44 AM EDT AGE/SEX: 62 years / Female INDICATIONS: Trauma; fall. CLINICAL DATA: This is the patient's initial encounter. Patient reports that signs and symptoms have been present for 1 day and indicates a pain score of 5/10. MEDICAL/SURGICAL HISTORY: Cardiovascular disease. Hypertension. Hepatitis C. Fusion, lumbar. RADIATION DOSE: 34.26 CTDI (mGy) ; Combined studies COMPARISON: No prior exams available for comparison. TECHNIQUE: Contiguous axial images were acquired using a multirow detector CT scanner without contra st. Multiplanar reconstruction in the sagittal and coronal planes was performed. Using automated exp osure control and adjustment of the mA and/or kV according to patient size, radiation dose was kept a s low as reasonably achievable to obtain optimal diagnostic quality images. DICOM format image data is available electronically for review and comparison. FINDINGS: Vertebrae: Normal vertebral body height. Alignment: Normal. No subluxation. T1 - T2: Normal. T2 - T3: The thecal sac has a normal diameter. No evidence of disc bulge or protrusion. T3 - T4: The thecal sac has a normal diameter. No evidence of disc bulge or protrusion. T4 - T5: The thecal sac has a normal diameter. No evidence of disc bulge or protrusion. T5 - T6: The thecal sac has a normal diameter. No evidence of disc bulge or protrusion. T6 - T7: The thecal sac has a normal diameter. No evidence of disc bulge or protrusion. T7 - T8: The thecal sac has a normal diameter. No evidence of disc bulge or protrusion. T8 - T9: The thecal sac has a normal diameter. No evidence of disc bulge or protrusion. T9 - T10: The thecal sac has a normal diameter. No evidence of disc bulge or protrusion. T10 - T11: The thecal sac has a normal diameter. No evidence of disc bulge or protrusion. T11 - T12: The thecal sac has a normal diameter. No evidence of disc bulge or protrusion. T12 - L1: The thecal sac has a normal diameter. No evidence of disc bulge or protrusion. CONCLUSION: 1. Negative CT Thoracic Spine non contrast. Electronically signed by: Mark Mac MD 10/05/2017 12:47 AM EDT
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
--- NOTE | 2017-10-05 00:50 | RADRPT ---
EXAM DATE: 10/05/2017 12:40 AM EDT AGE/SEX: 62 years / Female INDICATIONS: Trauma; fall. CLINICAL DATA: This is the patient's initial encounter. Patient reports that signs and symptoms have been present for 1 day and indicates a pain score of 5/10. MEDICAL/SURGICAL HISTORY: Cardiovascular disease. Hypertension. Hepatitis C. Fusion, lumbar. RADIATION DOSE: 34.26 CTDI (mGy) ; Combined studies COMPARISON: No prior exams available for comparison. TECHNIQUE: Contiguous axial images were acquired with a multirow detector CT scanner without contras t. Multiplanar reconstructions in the sagittal and coronal plane were also performed. Using automate d exposure control and adjustment of the mA and/or kV according to patient size, radiation dose was k ept as low as reasonably achievable to obtain optimal diagnostic quality images. DICOM format image data is available electronically for review and comparison. FINDINGS: Vertebrae: Normal vertebral body height. Alignment: Normal. No subluxation. T12-L1: The thecal sac has a normal diameter. No evidence of disc bulge or protrusion. The neural foramina are patent bilaterally. L1-L2: The thecal sac has a normal diameter. No evidence of disc bulge or protrusion. The neural f oramina are patent bilaterally. L2-L3: The thecal sac has a normal diameter. No evidence of disc bulge or protrusion. The neural f oramina are patent bilaterally. L3-L4: The thecal sac has a normal diameter. No evidence of disc bulge or protrusion. The neural f oramina are patent bilaterally. L4-L5: The thecal sac has a normal diameter. No evidence of disc bulge or protrusion. The neural f oramina are patent bilaterally. Marked degenerative facet disease. Articulation of the spinous proces ses L5-S1: The thecal sac has a normal diameter. No evidence of disc bulge or protrusion. There is a fu natty cage at L5-S1 The neural foramina are patent bilaterally. Marked degenerative facet disease. Ar ticulation of the spinous processes. CONCLUSION: 1. Electronically signed by: Mark Mac MD 10/05/2017 12:49 AM EDT
[2017-10-05 00:59] LABS: PROTHROMBIN TIME - PATIENT 9.8 SEC (9.8-11.6)
[2017-10-05] MEDS ORDERED: KETOROLAC TROMETHAMINE 30 MG/ML (IVP) VIAL IV PUSH ONE (01:00)
[2017-10-05] MEDS ORDERED: SODIUM CHLOR 0.9% 1000 ML INJ 1,000 ML IV SCH (01:00)
[2017-10-05 01:08] LABS: ALBUMIN 3.5 GM/DL (3.4-5.0); ALT (GPT) 22 U/L (10-53); AST (GOT) 15 U/L (15-37); BICARBONATE 24.8 MEQ/L (21.0-32.0); BLOOD UREA NITROGEN 19 MG/DL (7-18); CALCIUM 8.2 MG/DL (8.5-10.1); CHLORIDE 110 MEQ/L (98-107); CREATININE 1.33 MG/DL (0.50-1.00); GLOMERULAR FILTRATION RATE 41 ML/MIN (>89); GLUCOSE,RANDOM 100 MG/DL (74-106); SODIUM (NA) 142 MEQ/L (136-145)
[2017-10-05 01:10] LABS: ALKALINE PHOSPHATASE 89 U/L (45-117); TOTAL BILIRUBIN ADULT LESS THAN 0.1 MG/DL (0.2-1.0); TOTAL PROTEIN 6.8 GM/DL (6.4-8.2)
[2017-10-05] MEDS ORDERED: NAPR-810 PO (01:58)
[2017-10-05] MEDS ORDERED: ACETAMINOPHEN/HYDROcodone 325 MG/5 MG TAB PO ONE (02:45)
== END 2017-10-05 02:56 | disposition home or self-care (01) ==
LOC: NEPE 20:55
DX: S09.90XA Unspecified injury of head, initial encounter (principal); M54.2 Cervicalgia; M54.6 Pain in thoracic spine; M54.5 Low back pain; R10.9 Unspecified abdominal pain; W01.0XXA Fall on same level from slipping, tripping and stumbling without subsequent striking against object, initial encounter; Y92.009 Unspecified place in unspecified non-institutional (private) residence as the place of occurrence of the external cause; I10 Essential (primary) hypertension; E78.5 Hyperlipidemia, unspecified; E03.9 Hypothyroidism, unspecified; D64.9 Anemia, unspecified; F41.8 Other specified anxiety disorders; Z87.19 Personal history of other diseases of the digestive system; Z87.39 Personal history of other diseases of the musculoskeletal system and connective tissue
CPT/HCPCS: 70450; 72125; 72128; 72131; 80053; 83690; 85025; 85610; 85730; 96361; 96374; 99284; J1885; J7030

== ENCOUNTER 2017-10-09 13:51 | Emergency (ER) | payer OTHER, MEDICAID ==
[~2017-10-09] VITALS: Ht 170.2 cm; Wt 85.0 kg
[~2017-10-09 13:51] MED LIST changes: +NAPR-810 PO
[2017-10-09 13:58] VITALS: BP 123/57; PULSE 87; RESP 16; TEMP 99.9; O2SAT 97
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
[2017-10-09 16:30] LABS: BACTERIA, URINE FEW /hpf; BILIRUBIN, URINE NEG (NEG); BLOOD, URINE SMALL (NEG); GLUCOSE,URINE NEG (NEG); KETONE, URINE NEG (NEG); MUCUS URINE FEW /lpf (OCC); NITRITE,URINE NEG (NEG); SQUAMOUS EPITHELIAL CELL URINE 4 /hpf (0-5); URINE COLOR YELLOW (YELLW/STRAW); URINE LEUKOCYTE ESTERASE SMALL (NEG)
[2017-10-09] MEDS ORDERED: PHENAZOPYRIDINE HCL 200 MG TAB PO ONE (16:30)
[2017-10-09] MEDS ORDERED: IBUPROFEN 600 MG TAB PO ONE (16:30)
[2017-10-09] MEDS ORDERED: LIDOCAINE HCL 1% 50 ML VIAL INFIL ONE (16:45)
[2017-10-09] MEDS ORDERED: PHEN0.4T PO (16:47)
[2017-10-09] MEDS ORDERED: MACR100C3 PO (16:47)
[2017-10-09] MEDS ORDERED: LIDOCAINE HCL 1% PF 30 ML VIAL ONE (16:51)
== END 2017-10-09 17:19 | disposition home or self-care (01) ==
LOC: NEPD 13:51
DX: N30.00 Acute cystitis without hematuria (principal); E78.00 Pure hypercholesterolemia, unspecified; I10 Essential (primary) hypertension; F32.9 Major depressive disorder, single episode, unspecified
CPT/HCPCS: 81001; 87086; 87210; 96372; 99284; J0696